=== PATIENT | female | born 1985 | race Caucasian/White ===

== ENCOUNTER 2018-05-26 21:06 | Emergency (ER) | payer BC ==
[2018-05-26 21:33] VITALS: BP 110/65; PULSE 69; O2SAT 98
--- NOTE | 2018-05-26 21:44 | ERPHSYRPT ---
- History of Present Illness Time Seen by Provider: 05/26/18 21:35 Historian: patient Exam Limitations: no limitations Patient Subjective Stated Complaint: Pt arrives to ER with hematuria first noticed 1630 today, intermittent lower back pain for past 10 months and lower abdominal pain for 3 months when she "holds her urine". Triage Nursing Assessment: no gross hematuria noted at this time. Physician History: 32-year-old white female arrives with complaint of pain in her back and bilateral of for 10 months intermittent also complains of lower abdominal pain with urination again for 3 months. She states today she noticed some blood in her urine. Past medical history asthma. Past surgical history includes C-sections tonsils hysterectomy. Social history patient denies alcohol or illicit drugs positive tobacco. Timing/Duration: other (hematuria today, lower abdominal pain with urination for 3 months, intermittent back pain for 10 months) Quality: sharpness Abdominal Pain Onset Location: flank (bilateral flank), other (bilateral lower abdomen) Severity of Pain-Max: moderate Severity of Pain-Current: moderate Associated Symptoms: No chest pain, No diaphoresis, No diarrhea, No fever/chills , No fatigue, No headache, No heartburn, No loss of appetite, No nausea, No neck pain, No rash, No shortness of breath, No syncope, No vomiting, No weakness Previous symptoms: no prior history Allergies/Adverse Reactions: ceftriaxone [From Rocephin] Allergy (Intermediate, Verified 05/26/18 21:33) Anaphylactic Reaction bupropion HCl [From Wellbutrin] Allergy (Mild, Unverified 02/10/12 18:35) diphenhydramine HCl [From Benadryl] Allergy (Mild, Unverified 02/10/12 18:35) tramadol Allergy (Mild, Unverified 02/10/12 18:35) Home Medications: Clindamycin HCl 300 mg PO QID 05/26/18 [History] Folic Acid 1 mg PO 05/26/18 [History] - Review of Systems Constitutional: No Fever, No Chills Eyes: No Symptoms Ears, Nose, & Throat: No Symptoms Respiratory: No Cough, No Dyspnea Cardiac: No Chest Pain, No Edema, No Syncope Abdominal/Gastrointestinal: Abdominal Pain (bilateral lower abdominal pain with urination), No Nausea, No Vomiting, No Diarrhea, No Constipation, No Hematemesis , No Hematochezia, No Melena, No Dysphagia, No Appetite Changes Genitourinary Symptoms: Dysuria, Flank Pain (bilateral flank pain off an on for 10 months) Musculoskeletal: No Back Pain, No Neck Pain Skin: No Rash Neurological: No Dizziness, No Focal Weakness, No Sensory Changes Psychological: No Symptoms Endocrine: No Symptoms All Other Systems: Reviewed and Negative - Past Medical History Pertinent Past Medical History: Yes Respiratory History: Asthma, Emphysema - Past Surgical History Past Surgical History: Yes Female Surgical History: Hysterectomy, Section Other Surgical History: TONSILECTOMY, ear tubes - Social History Smoking Status: Current every day smoker How long have you smoked: 6 YEARS Exposure to second hand smoke: No Drug Use: none Patient Lives Alone: No - Female History Hx Now: No - Nursing Vital Signs Nursing Vital Signs: Initial Vital Signs Temperature 98 F 05/26/18 21:23 Pulse Rate 69 05/26/18 21:23 Respiratory Rate 18 05/26/18 21:23 Blood Pressure 110/65 05/26/18 21:23 O2 Sat by Pulse Oximetry 98 05/26/18 21:23 Pain Scale Pain Intensity 6 - Physical Exam General Appearance: mild distress Eye Exam: PERRL/EOMI, eyes nml inspection Ears, Nose, Throat Exam: normal ENT inspection, pharynx normal, moist mucous membranes Neck Exam: normal inspection, non-tender, supple, full range of motion Respiratory Exam: normal breath sounds, lungs clear, No respiratory distress Cardiovascular Exam: regular rate/rhythm, normal heart sounds Gastrointestinal/Abdomen Exam: soft, No tenderness, No mass Back Exam: normal inspection, normal range of motion, No CVA tenderness, No vertebral tenderness Extremity Exam: normal inspection, normal range of motion, pelvis stable Neurologic Exam: alert, oriented x 3, cooperative, beauty director II-XII nml as tested, normal mood/affect, nml cerebellar function, sensation nml, No motor deficits Skin Exam: normal color, warm, dry SpO2 Interpretation: normal (98%) SpO2: 98 Oxygen Delivery: Room Air Ordered Tests: Active Orders 24 hr Category Date Time Status BMP Stat Lab 05/26/18 21:50 Completed CBC W DIFF Stat Lab 05/26/18 21:50 Completed CULTURE,URINE Stat Lab 05/26/18 21:50 Received UA W/RFX UR CULTURE Stat Lab 05/26/18 21:50 Completed Urine Triage Profile Stat Lab 05/26/18 21:48 Completed Medication Summary Discontinued Medications Generic Name Dose Route Start Last Admin Trade Name Gabi PRN Reason Stop Dose Admin Ketorolac Tromethamine 30 mg 05/26/18 22:11 05/26/18 22:23 Toradol 30 Mg Injection IV 05/26/18 22:12 30 mg STAT ONE Administration Ketorolac Tromethamine Confirm 05/26/18 22:16 Toradol 30 Mg Injection Administered 05/26/18 22:17 Dose 30 mg .ROUTE .STK-MED ONE Trimethoprim/Sulfamethoxazole 1 tab 05/26/18 22:11 05/26/18 22:22 Bactrim Ds Tablet PO 05/26/18 22:12 1 tab STAT ONE Administration Trimethoprim/Sulfamethoxazole Confirm 05/26/18 22:16 Bactrim Ds Tablet Administered 05/26/18 22:17 Dose 1 tab PO .STK-MED ONE Lab/Rad Data: Laboratory Result Diagrams 05/26/18 21:50 05/26/18 21:50 Laboratory Results 05/26/18 05/26/18 05/26/18 Range/Units 21:50 21:50 21:50 WBC 15.1 H (4.0-10.5) K/mm3 RBC 4.44 (4.1-5.4) M/mm3 Hgb 14.8 (12.0-16.0) gm/dl Hct 43.5 (35-47) % MCV 98.0 (78-100) fl MCH 33.3 H (26-32) pg MCHC 34.0 (32-36) g/dl RDW 12.9 (11.5-14.0) % Plt Count 231 (150-450) K/mm3 MPV 9.7 H (6-9.5) fl Gran % 76.4 H (36.0-66.0) % Eos # (Auto) 0.10 (0-0.5) Absolute Lymphs (auto) 2.85 (1.0-4.6) Absolute Monos (auto) 0.61 (0.0-1.3) Lymphocytes % 18.8 L (24.0-44.0) % Monocytes % 4.0 (0.0-12.0) % Eosinophils % 0.7 (0.00-5.0) % Basophils % 0.1 (0.0-0.4) % Absolute Granulocytes 11.56 H (1.4-6.9) Basophils # 0.02 (0-0.4) Sodium 141 (137-145) mmol/L Potassium 3.8 (3.5-5.1) mmol/L Chloride 106 (98-107) mmol/L Carbon Dioxide 27 (22-30) mmol/L Anion Gap 12.4 (5-15) MEQ/L BUN 10 (7-17) mg/dL Creatinine 0.70 (0.52-1.04) mg/dL Estimated GFR > 60.0 ML/MIN Glucose 97 (74-106) mg/dL Calcium 9.7 (8.4-10.2) mg/dL Urine Color YELLOW (YELLOW) Urine Appearance SLIGHTLY CLOUDY (CLEAR) Urine pH 6.0 (5-6) Ur Specific [place] 1.003 (1.005-1.025) Urine Protein NEGATIVE (Negative) Urine Ketones NEGATIVE (NEGATIVE) Urine Blood LARGE (0-5) [place]/ul Urine Nitrite NEGATIVE (NEGATIVE) Urine Bilirubin NEGATIVE (NEGATIVE) Urine Urobilinogen NEGATIVE (0-1) mg/dL Ur Leukocyte Esterase LARGE (NEGATIVE) Urine WBC (Auto) >100 (0-5) /HPF Urine RBC (Auto) 11-15 (0-2) /HPF U Epithel Cells (Auto) RARE (FEW) /HPF Urine Bacteria (Auto) FEW (NEGATIVE) /HPF Urine Mucus (Auto) SLIGHT (NEGATIVE) /HPF Urine Culture Reflexed YES (NO) Urine Glucose NEGATIVE (NEGATIVE) mg/dL Urine Opiates Level (NEGATIVE) Ur Methadone (NEGATIVE) Urine Barbiturates (NEGATIVE) Ur Phencyclidine (PCP) (NEGATIVE) Urine Amphetamine (NEGATIVE) U Benzodiazepine Level (NEGATIVE) Urine Cocaine (NEGATIVE) Urine Marijuana (THC) (NEGATIVE) 05/26/18 Range/Units 21:48 WBC (4.0-10.5) K/mm3 RBC (4.1-5.4) M/mm3 Hgb (12.0-16.0) gm/dl Hct (35-47) % MCV (78-100) fl MCH (26-32) pg MCHC (32-36) g/dl RDW (11.5-14.0) % Plt Count (150-450) K/mm3 MPV (6-9.5) fl Gran % (36.0-66.0) % Eos # (Auto) (0-0.5) Absolute Lymphs (auto) (1.0-4.6) Absolute Monos (auto) (0.0-1.3) Lymphocytes % (24.0-44.0) % Monocytes % (0.0-12.0) % Eosinophils % (0.00-5.0) % Basophils % (0.0-0.4) % Absolute Granulocytes (1.4-6.9) Basophils # (0-0.4) Sodium (137-145) mmol/L Potassium (3.5-5.1) mmol/L Chloride (98-107) mmol/L Carbon Dioxide (22-30) mmol/L Anion Gap (5-15) MEQ/L BUN (7-17) mg/dL Creatinine (0.52-1.04) mg/dL Estimated GFR ML/MIN Glucose (74-106) mg/dL Calcium (8.4-10.2) mg/dL Urine Color (YELLOW) Urine Appearance (CLEAR) Urine pH (5-6) Ur Specific [place] (1.005-1.025) Urine Protein (Negative) Urine Ketones (NEGATIVE) Urine Blood (0-5) Bass[place]/ul Urine Nitrite (NEGATIVE) Urine Bilirubin (NEGATIVE) Urine Urobilinogen (0-1) mg/dL Ur Leukocyte Esterase (NEGATIVE) Urine WBC (Auto) (0-5) /HPF Urine RBC (Auto) (0-2) /HPF U Epithel Cells (Auto) (FEW) /HPF Urine Bacteria (Auto) (NEGATIVE) /HPF Urine Mucus (Auto) (NEGATIVE) /HPF Urine Culture Reflexed (NO) Urine Glucose (NEGATIVE) mg/dL Urine Opiates Level NEGATIVE (NEGATIVE) Ur Methadone NEGATIVE (NEGATIVE) Urine Barbiturates NEGATIVE (NEGATIVE) Ur Phencyclidine (PCP) NEGATIVE (NEGATIVE) Urine Amphetamine NEGATIVE (NEGATIVE) U Benzodiazepine Level NEGATIVE (NEGATIVE) Urine Cocaine NEGATIVE (NEGATIVE) Urine Marijuana (THC) NEGATIVE (NEGATIVE) - Progress Progress: improved Progress Note: 05/26/18 22:22 32-year-old white female arrives with complaint of 10 months of intermittent back pain and 3 months of dysuria. Patient with mild lower abdominal tenderness CBC elevated at 15 white count Patient's greater than 100 white cells per high-power field in her urine I have given the patient Bactrim DS 1 tablet orally Toradol 30 mg IV. Cultures have been obtained of the urine.chemistry is normal 05/26/18 22:24 05/26/18 22:29 Patient feeling better with Toradol 30 mg IV. She does not want any pain medications other than this she states she will take [id number] Advil or Tylenol. She is on clindamycin for a facial infection which she started last week. Will go ahead and place her on Bactrim DS one orally twice a day for 10 days. Patient has been advised to drink plenty of fluids. She has been advised that she needs to follow-up with her family doctor. - Departure Time of Disposition: 22:30 Departure Disposition: Home Clinical Impression: Dysuria, Suprapubic abdominal pain Hematuria Qualifiers: Hematuria type: unspecified type Qualified Code(s): R31.9 - Hematuria, unspecified UTI (urinary tract infection) Qualifiers: Urinary tract infection type: site unspecified Hematuria presence: with hematuria Qualified Code(s): N39.0 - Urinary tract infection, site not specified Condition: Fair Critical Care Time: No Referrals: DOCTOR,NO FAMILY [Primary Care Provider] - Additional Instructions: Return home. Plenty of fluids. Bactrim as prescribed. Tylenol every 4 hours or Advil every 6 hours as needed for pain. Follow-up with your family doctor you will need follow-up. Return for acute distress or for severe symptoms. Prescriptions: Smz/Tmp Ds Tablet [Bactrim Ds Tablet] 1 tab PO BID #20 tablet
[2018-05-26 21:53] LABS: BASOPHIL % 0.1 % (0.0-0.4); Basophil (Absolute #) 0.02 (0-0.4); Eosinophil % 0.7 % (0.00-5.0); Granulocyte Absolute (ANC) 11.56 (1.4-6.9); Granulocytes % 76.4 % (36.0-66.0); Hematocrit 43.5 % (35-47); Hemoglobin 14.8 gm/dl (12.0-16.0); Lymphocyte (Absolute #) 2.85 (1.0-4.6); Lymphocytes % 18.8 % (24.0-44.0); Mean Corpuscular Hemoglobin 33.3 pg (26-32); Mean Platelet Volume 9.7 fl (6-9.5); Monocyte (Absolute #) 0.61 (0.0-1.3); Platelet Count 231 K/mm3 (150-450); Red Blood Count 4.44 M/mm3 (4.1-5.4); Red Cell Distribution Width 12.9 % (11.5-14.0); White Blood Count 15.1 K/mm3 (4.0-10.5)
[2018-05-26 22:04] LABS: Appearance SLIGHTLY CLOUDY (CLEAR); Bilirubin NEGATIVE (NEGATIVE); Blood LARGE Ery/ul (0-5); Glucose NEGATIVE (NEGATIVE); Ketones NEGATIVE (NEGATIVE); Leukocyte Esterase LARGE (NEGATIVE); Nitrite NEGATIVE (NEGATIVE); Protein,Urine Dip NEGATIVE (Negative); Specific Gravity 1.003 (1.005-1.025); Urobilinogen NEGATIVE mg/dL (0-1)
[2018-05-26 22:10] LABS: ANION GAP 12.4 MEQ/L (5-15); BLOOD UREA NITROGEN 10 mg/dL (7-17); CHLORIDE 106 mmol/L (98-107); Calcium 9.7 mg/dL (8.4-10.2); Carbon Dioxide 27 mmol/L (22-30); Glucose 97 mg/dL (74-106); Potassium 3.8 mmol/L (3.5-5.1); SODIUM 141 mmol/L (137-145)
[2018-05-26 22:11] LABS: Amphetamine,Urine NEGATIVE (NEGATIVE); Barbiturate,Urine NEGATIVE (NEGATIVE); Benzodiazepine,Urine NEGATIVE (NEGATIVE); Cocaine,Urine NEGATIVE (NEGATIVE); Methadone,Urine NEGATIVE (NEGATIVE); Opiate,Urine NEGATIVE (NEGATIVE); PCP,Urine NEGATIVE (NEGATIVE); THC,Urine NEGATIVE (NEGATIVE)
[2018-05-26] MEDS ORDERED: TORAdol 30 mg Injection IV ONE (22:11)
[2018-05-26] MEDS ORDERED: BACTRIM DS TABLET PO ONE ×2 (22:11→22:16)
[2018-05-26] MEDS ORDERED: TORAdol 30 mg Injection ONE (22:16)
== END 2018-05-26 22:39 | disposition home or self-care (01) ==
LOC: ED 21:06
DX: R30.0 Dysuria (principal); R10.30 Lower abdominal pain, unspecified; N39.0 Urinary tract infection, site not specified; Z72.0 Tobacco use; J45.909 Unspecified asthma, uncomplicated
CPT/HCPCS: 36415; 80048; 80307; 81001; 85025; 87077; 87086; 87186; 96374; 99284; J1885; A9270-GY

== ENCOUNTER 2018-12-25 13:34 | Emergency (ER) | payer BC, MEDICAID ==
--- NOTE | 2018-12-25 13:50 | ERPHSYRPT ---
- History of Present Illness Time Seen by Provider: 12/25/18 13:50 Source: patient Exam Limitations: no limitations Physician History: 33 y/o white female s/p hysterectomy in the past noticed a few days ago painful urination and mild gross hematuria. pt drank cranberry juice. sx improved. this am painful urination worsened and again mild gross hematuria. denies abd pain, denies n/v/d. pt states she has taken cipro and bactrim in past for uti without issues. Timing/Duration: day(s) (2 to 3 days) Activites at Onset: none Quality: burning Pain Radiation: none Severity of Pain-Max: mild Severity of Pain-Current: mild Sexual intercourse history: non-contributory Modifying Factors: Improves With: other (cranberry juice helped temporarily.) Allergies/Adverse Reactions: ceftriaxone [From Rocephin] Allergy (Intermediate, Verified 12/25/18 13:47) Anaphylactic Reaction bupropion HCl [From Wellbutrin] Allergy (Mild, Verified 12/25/18 13:47) diphenhydramine HCl [From Benadryl] Allergy (Mild, Verified 12/25/18 13:47) tramadol Allergy (Mild, Verified 12/25/18 13:47) Home Medications: Folic Acid 1 mg PO DAILY 05/26/18 [History] - Review of Systems Constitutional: No Symptoms Eyes: No Symptoms Ears, Nose, & Throat: No Symptoms Respiratory: No Symptoms Cardiac: No Symptoms Abdominal/Gastrointestinal: No Symptoms Genitourinary Symptoms: Dysuria, Hesitancy Musculoskeletal: No Symptoms Skin: No Symptoms Neurological: No Symptoms Psychological: No Symptoms Endocrine: No Symptoms Hematologic/Lymphatic: No Symptoms Immunological/Allergic: No Symptoms All Other Systems: Reviewed and Negative - Past Medical History Pertinent Past Medical History: Yes Neurological History: No Pertinent History ENT History: No Pertinent History Cardiac History: No Pertinent History Respiratory History: Asthma, Emphysema Endocrine Medical History: No Pertinent History Musculoskeletal History: No Pertinent History GI Medical History: No Pertinent History History: No Pertinent History Psycho-Social History: No Pertinent History Female Reproductive Disorders: No Pertinent History - Past Surgical History Past Surgical History: Yes Neuro Surgical History: No Pertinent History Cardiac: No Pertinent History Respiratory: No Pertinent History Gastrointestinal: No Pertinent History Genitourinary: No Pertinent History Musculoskeletal: No Pertinent History Female Surgical History: Hysterectomy, Section Other Surgical History: TONSILECTOMY, ear tubes - Social History Smoking Status: Current every day smoker How long have you smoked: 6 YEARS Exposure to second hand smoke: No Drug Use: none Patient Lives Alone: No - Nursing Vital Signs Nursing Vital Signs: Initial Vital Signs Temperature 97.5 F 12/25/18 13:39 Pulse Rate 79 12/25/18 13:39 Respiratory Rate 16 12/25/18 13:39 Blood Pressure 116/70 12/25/18 13:39 O2 Sat by Pulse Oximetry 100 12/25/18 13:39 Pain Scale Pain Intensity 2 - Physical Exam General Appearance: no apparent distress, alert, anxiety Eye Exam: PERRL/EOMI Ears, Nose, Throat Exam: normal ENT inspection, moist mucous membranes Neck Exam: normal inspection, non-tender, supple, full range of motion Respiratory Exam: normal breath sounds, lungs clear, airway intact, No chest tenderness, No respiratory distress Cardiovascular Exam: regular rate/rhythm, normal heart sounds, normal peripheral pulses Gastrointestinal/Abdomen Exam: soft, normal bowel sounds, No tenderness, No guarding, No rebound Pelvic Exam: not done Rectal Exam: not done Back Exam: normal inspection, normal range of motion, No CVA tenderness, No vertebral tenderness Extremity Exam: normal inspection, normal range of motion, No pelvis stable Neurologic Exam: alert, oriented x 3, cooperative, stave mill hand II-XII nml as tested Skin Exam: normal color, warm, dry Lymphatic Exam: No adenopathy SpO2 Interpretation: normal O2 Delivery: Room Air - Course Nursing assessment & vital signs reviewed: Yes Ordered Tests: Active Orders 24 hr Category Date Time Status CULTURE,URINE Stat Lab 12/25/18 14:02 Received UA W/RFX UR CULTURE Stat Lab 12/25/18 14:02 Completed Lab/Rad Data: Laboratory Results 12/25/18 Range/Units 14:02 Urine Color RED (YELLOW) Urine Appearance CLOUDY (CLEAR) Urine pH 6.0 (5-6) Ur Specific [place] 1.013 (1.005-1.025) Urine Protein >=500 (Negative) Urine Ketones NEGATIVE (NEGATIVE) Urine Blood LARGE (0-5) [place]/ul Urine Nitrite NEGATIVE (NEGATIVE) Urine Bilirubin NEGATIVE (NEGATIVE) Urine Urobilinogen NEGATIVE (0-1) mg/dL Ur Leukocyte Esterase MODERATE (NEGATIVE) Urine WBC (Auto) >100 (0-5) /HPF Urine RBC (Auto) >101 (0-2) /HPF U Epithel Cells (Auto) RARE (FEW) /HPF Urine Bacteria (Auto) RARE (NEGATIVE) /HPF Urine Culture Reflexed YES (NO) Urine Glucose 50 (NEGATIVE) mg/dL - Progress Progress: re-examined, unchanged Air Movement: good Counseled pt/family regarding: lab results, diagnosis, need for follow-up - Departure Departure Disposition: Home Clinical Impression: UTI (urinary tract infection) Condition: Stable Critical Care Time: No Referrals: DOCTOR,NO FAMILY [Primary Care Provider] - Additional Instructions: drink plenty of fluids. follow up with primary doctor or urologist for further management. use tylenol and ibuprofen for pain Prescriptions: Ciprofloxacin [Cipro 500 MG] 500 mg PO BID #20 tablet Phenazopyridine HCl 200 mg [Pyridium 200 mg] 200 mg PO TID #6 tablet
[2018-12-25 14:00] VITALS: PULSE 79
[2018-12-25 14:22] LABS: Appearance CLOUDY (CLEAR); Bacteria RARE /HPF (NEGATIVE); Bilirubin NEGATIVE (NEGATIVE); Blood LARGE Ery/ul (0-5); Epithelial Cells RARE /HPF (FEW); Glucose 50 mg/dL (NEGATIVE); Ketones NEGATIVE (NEGATIVE); Leukocyte Esterase MODERATE (NEGATIVE); Nitrite NEGATIVE (NEGATIVE); Protein,Urine Dip >=500 (Negative); Specific Gravity 1.013 (1.005-1.025); Urobilinogen NEGATIVE mg/dL (0-1); WBC >100 /HPF (0-5)
[2018-12-25 14:23] LABS: RBC >101 /HPF (0-2)
[2018-12-25 14:56] VITALS: BP 103/61; O2SAT 98
== END 2018-12-25 15:03 | disposition home or self-care (01) ==
LOC: ED 13:34
DX: N39.0 Urinary tract infection, site not specified (principal)
CPT/HCPCS: 81001; 87077; 87086; 87186; 99283

== ENCOUNTER 2019-03-19 13:50 | Emergency (ER) | payer MEDICAID ==
[2019-03-19] MEDS ORDERED: TORAdol 30 mg Injection IV ONE (14:05)
[2019-03-19] MEDS ORDERED: Sodium Chloride 0.9% 1000 ML 1,000 ML IV STA ×2 (14:05→15:43)
[2019-03-19] MEDS ORDERED: Zofran 4 MG/2 ML VIAL IV ONE (14:05)
--- NOTE | 2019-03-19 14:09 | ERPHSYRPT ---
- History of Present Illness Time Seen by Provider: 03/19/19 14:07 Historian: patient Exam Limitations: no limitations Patient Subjective Stated Complaint: states shes been having nausea and vomitting for past few days concerned it might be moring sickness Triage Nursing Assessment: pt alert and orietnedx3, able to ambulate by self, patient gait iss teady, skin warm ry and itnact, pulses equal bialteral radius, lung soudns clear, abdomianl soudns present x4 , no tednerness on palpation. Physician History: mild to mod diffuse abdominal cramps off and on for one week, no fever, hx hysterectomy, no injury Allergies/Adverse Reactions: ceftriaxone [From Rocephin] Allergy (Intermediate, Verified 12/25/18 13:47) Anaphylactic Reaction bupropion HCl [From Wellbutrin] Allergy (Mild, Verified 12/25/18 13:47) diphenhydramine HCl [From Benadryl] Allergy (Mild, Verified 12/25/18 13:47) tramadol Allergy (Mild, Verified 12/25/18 13:47) Home Medications: Folic Acid 1 mg PO DAILY 05/26/18 [History] Hx Tetanus, Diphtheria Vaccination/Date Given: Yes Hx Influenza Vaccination/Date Given: No Hx Pneumococcal Vaccination/Date Given: No Immunizations Up to Date: Yes - Review of Systems Constitutional: No Fever Eyes: No Vision Changes Ears, Nose, & Throat: No Throat Swelling Respiratory: No Symptoms Cardiac: No Symptoms Abdominal/Gastrointestinal: Abdominal Pain, Vomiting Musculoskeletal: No Symptoms Skin: No Symptoms Neurological: No Dizziness - Past Medical History Pertinent Past Medical History: Yes Neurological History: No Pertinent History ENT History: No Pertinent History Cardiac History: No Pertinent History Respiratory History: Asthma, Emphysema Endocrine Medical History: No Pertinent History Musculoskeletal History: No Pertinent History GI Medical History: No Pertinent History History: No Pertinent History Psycho-Social History: No Pertinent History Female Reproductive Disorders: No Pertinent History - Past Surgical History Past Surgical History: Yes Neuro Surgical History: No Pertinent History Cardiac: No Pertinent History Respiratory: No Pertinent History Gastrointestinal: No Pertinent History Genitourinary: No Pertinent History Musculoskeletal: No Pertinent History Female Surgical History: Hysterectomy, Section Other Surgical History: TONSILECTOMY, ear tubes - Social History Smoking Status: Current every day smoker How long have you smoked: 6 YEARS Exposure to second hand smoke: No Drug Use: none Patient Lives Alone: No - Female History Hx Now: (unsure) - Nursing Vital Signs Nursing Vital Signs: Initial Vital Signs Temperature 98.2 F 03/19/19 13:51 Pulse Rate 67 03/19/19 13:51 Respiratory Rate 20 03/19/19 13:51 Blood Pressure 111/74 03/19/19 13:51 O2 Sat by Pulse Oximetry 98 03/19/19 13:51 Pain Scale Pain Intensity 5 - Physical Exam General Appearance: no apparent distress Eye Exam: eyes nml inspection Ears, Nose, Throat Exam: moist mucous membranes Neck Exam: normal inspection Respiratory Exam: normal breath sounds Cardiovascular Exam: regular rate/rhythm Gastrointestinal/Abdomen Exam: soft, tenderness, No rebound Back Exam: No vertebral tenderness Extremity Exam: normal inspection Neurologic Exam: alert, oriented x 3, cooperative Skin Exam: normal color, warm, dry - Course Nursing assessment & vital signs reviewed: Yes - CT Exams Abdomen/Pelvis CT Interpretation: Discussed w/radiologist, No appendicitis, Other (no obstruction, +ovarian cysts) - Radiology Ultrasound Exam Other Ultrasound: discussed w/radiologist, Other (no torsion) Ordered Tests: Active Orders 24 hr Category Date Time Status IV Insertion STAT Care 03/19/19 14:05 Active ABDOMEN AND PELVIS W/0 CONTRAS [CT] Stat Exams 03/19/19 15:08 Completed PELVIC [US] Stat Exams 03/19/19 15:35 Taken CBC W DIFF Stat Lab 03/19/19 14:20 Completed CMP Stat Lab 03/19/19 14:20 Completed HCG QUALITATIVE,SERUM Stat Lab 03/19/19 14:48 Completed LIPASE Stat Lab 03/19/19 14:20 Completed Lactic Acid Stat Lab 03/19/19 14:30 Completed UA W/RFX UR CULTURE Stat Lab 03/19/19 14:20 Completed Medication Summary Discontinued Medications Generic Name Dose Route Start Last Admin Trade Name Freq PRN Reason Stop Dose Admin Sodium Chloride 1,000 mls @ 999 mls/hr 03/19/19 14:05 03/19/19 15:24 Sodium Chloride 0.9% 1000 Ml IV 03/19/19 15:05 Infused .Q1H1M STA Infusion Sodium Chloride Confirm 03/19/19 14:17 Sodium Chloride 0.9% 1000 Ml Administered 03/19/19 14:18 Dose 1,000 mls @ ud .ROUTE .STK-MED ONE Sodium Chloride 1,000 mls @ 999 mls/hr 03/19/19 15:43 03/19/19 15:48 Sodium Chloride 0.9% 1000 Ml IV 03/19/19 16:43 999 mls/hr .Q1H1M STA Administration Sodium Chloride Confirm 03/19/19 15:45 Sodium Chloride 0.9% 1000 Ml Administered 03/19/19 15:46 Dose 1,000 mls @ ud .ROUTE .STK-MED ONE Ketorolac Tromethamine 30 mg 03/19/19 14:05 03/19/19 14:23 Toradol 30 Mg Injection IV 03/19/19 14:06 30 mg STAT ONE Administration Ketorolac Tromethamine Confirm 03/19/19 14:16 Toradol 30 Mg Injection Administered 03/19/19 14:17 Dose 30 mg .ROUTE .STK-MED ONE Morphine Sulfate 4 mg 03/19/19 15:34 03/19/19 15:47 Morphine Sulfate 4 Mg Inj IV 03/19/19 15:35 4 mg STAT ONE Administration Morphine Sulfate Confirm 03/19/19 15:44 Morphine Sulfate 4 Mg Inj Administered 03/19/19 15:45 Dose 4 mg .ROUTE .STK-MED ONE Ondansetron HCl 4 mg 03/19/19 14:05 03/19/19 14:23 Zofran 4 Mg/2 Ml Vial IV 03/19/19 14:06 4 mg STAT ONE Administration Ondansetron HCl Confirm 03/19/19 14:16 Zofran 4 Mg/2 Ml Vial Administered 03/19/19 14:17 Dose 4 mg .ROUTE .STK-MED ONE Lab/Rad Data: Laboratory Result Diagrams 03/19/19 14:20 03/19/19 14:20 Laboratory Results 03/19/19 03/19/19 03/19/19 Range/Units 14:48 14:30 14:20 WBC (4.0-10.5) K/mm3 RBC (4.1-5.4) M/mm3 Hgb (12.0-16.0) gm/dl Hct (35-47) % MCV (78-100) fl MCH (26-32) pg MCHC (32-36) g/dl RDW (11.5-14.0) % Plt Count (150-450) K/mm3 MPV (6-9.5) fl Gran % (36.0-66.0) % Eos # (Auto) (0-0.5) Absolute Lymphs (auto) (1.0-4.6) Absolute Monos (auto) (0.0-1.3) Lymphocytes % (24.0-44.0) % Monocytes % (0.0-12.0) % Eosinophils % (0.00-5.0) % Basophils % (0.0-0.4) % Absolute Granulocytes (1.4-6.9) Basophils # (0-0.4) Sodium (137-145) mmol/L Potassium (3.5-5.1) mmol/L Chloride (98-107) mmol/L Carbon Dioxide (22-30) mmol/L Anion Gap (5-15) MEQ/L BUN (7-17) mg/dL Creatinine (0.52-1.04) mg/dL Estimated GFR ML/MIN Glucose (74-106) mg/dL Lactic Acid 1.8 (0.4-2.0) Calcium (8.4-10.2) mg/dL Total Bilirubin (0.2-1.3) mg/dL AST (14-36) U/L ALT (0-35) U/L Alkaline Phosphatase (38-126) U/L Serum Total Protein (6.3-8.2) g/dL Albumin (3.5-5.0) g/dL Lipase (23-300) U/L Serum , Qual NEGATIVE (Negative) Urine Color RADHA (YELLOW) Urine Appearance SLIGHTLY CLOUDY (CLEAR) Urine pH 6.0 (5-6) Ur Specific [place] 1.024 (1.005-1.025) Urine Protein NEGATIVE (Negative) Urine Ketones NEGATIVE (NEGATIVE) Urine Blood MODERATE (0-5) Bassam/ul Urine Nitrite NEGATIVE (NEGATIVE) Urine Bilirubin NEGATIVE (NEGATIVE) Urine Urobilinogen NEGATIVE (0-1) mg/dL Ur Leukocyte Esterase NEGATIVE (NEGATIVE) Urine WBC (Auto) 0-2 (0-5) /HPF Urine RBC (Auto) 3-5 (0-2) /HPF U Epithel Cells (Auto) RARE (FEW) /HPF Urine Bacteria (Auto) NONE (NEGATIVE) /HPF Urine Mucus (Auto) SLIGHT (NEGATIVE) /HPF Urine Culture Reflexed NO (NO) Urine Glucose NEGATIVE (NEGATIVE) mg/dL 03/19/19 03/19/19 Range/Units 14:20 14:20 WBC 9.3 (4.0-10.5) K/mm3 RBC 4.51 (4.1-5.4) M/mm3 Hgb 15.2 (12.0-16.0) gm/dl Hct 45.2 (35-47) % MCV 100.2 H (78-100) fl MCH 33.7 H (26-32) pg MCHC 33.6 (32-36) g/dl RDW 13.0 (11.5-14.0) % Plt Count 243 (150-450) K/mm3 MPV 9.3 (6-9.5) fl Gran % 58.4 (36.0-66.0) % Eos # (Auto) 0.11 (0-0.5) Absolute Lymphs (auto) 3.10 (1.0-4.6) Absolute Monos (auto) 0.63 (0.0-1.3) Lymphocytes % 33.4 (24.0-44.0) % Monocytes % 6.8 (0.0-12.0) % Eosinophils % 1.2 (0.00-5.0) % Basophils % 0.2 (0.0-0.4) % Absolute Granulocytes 5.43 (1.4-6.9) Basophils # 0.02 (0-0.4) Sodium 140 (137-145) mmol/L Potassium 3.7 (3.5-5.1) mmol/L Chloride 108 H (98-107) mmol/L Carbon Dioxide 27 (22-30) mmol/L Anion Gap 9.0 (5-15) MEQ/L BUN 9 (7-17) mg/dL Creatinine 0.72 (0.52-1.04) mg/dL Estimated GFR > 60.0 ML/MIN Glucose 95 (74-106) mg/dL Lactic Acid (0.4-2.0) Calcium 9.8 (8.4-10.2) mg/dL Total Bilirubin 0.40 (0.2-1.3) mg/dL AST 24 (14-36) U/L ALT 25 (0-35) U/L Alkaline Phosphatase 44 (38-126) U/L Serum Total Protein 7.4 (6.3-8.2) g/dL Albumin 4.3 (3.5-5.0) g/dL Lipase 67 (23-300) U/L Serum , Qual (Negative) Urine Color (YELLOW) Urine Appearance (CLEAR) Urine pH (5-6) Ur Specific [place] (1.005-1.025) Urine Protein (Negative) Urine Ketones (NEGATIVE) Urine Blood (0-5) Bassam/ul Urine Nitrite (NEGATIVE) Urine Bilirubin (NEGATIVE) Urine Urobilinogen (0-1) mg/dL Ur Leukocyte Esterase (NEGATIVE) Urine WBC (Auto) (0-5) /HPF Urine RBC (Auto) (0-2) /HPF U Epithel Cells (Auto) (FEW) /HPF Urine Bacteria (Auto) (NEGATIVE) /HPF Urine Mucus (Auto) (NEGATIVE) /HPF Urine Culture Reflexed (NO) Urine Glucose (NEGATIVE) mg/dL - Progress Progress: improved Progress Note: 03/19/19 17:11 see your doctor, norco and morphine warnings given, zofran, return if worse, differential includes ovarian cysts, cancer - Departure Departure Disposition: Home Clinical Impression: Suprapubic abdominal pain Condition: Stable Critical Care Time: No Referrals: DOCTOR,NO FAMILY [Primary Care Provider] - Instructions: Vomiting -- Adult Prescriptions: Ondansetron ODT 4 MG [Zofran Odt 4 mg] 1 tab PO Q6H PRN PRN #10 tab.rapdis PRN Reason: Nausea/Vomiting Hydrocodone/APAP 5/325 [[place] 5/325 mg] 1 each PO Q4-6HPRN PRN 2 Days #6 tablet MDD 4 PRN Reason: Moderate Pain
[2019-03-19] MEDS ORDERED: Zofran 4 MG/2 ML VIAL ONE (14:16)
[2019-03-19] MEDS ORDERED: TORAdol 30 mg Injection ONE (14:16)
[2019-03-19] MEDS ORDERED: Sodium Chloride 0.9% 1000 ML 1,000 ML ONE ×2 (14:17→15:45)
[2019-03-19 14:36] LABS: BASOPHIL % 0.2 % (0.0-0.4); Basophil (Absolute #) 0.02 (0-0.4); Eosinophil % 1.2 % (0.00-5.0); Eosinophil (Absolute #) 0.11 (0-0.5); Granulocyte Absolute (ANC) 5.43 (1.4-6.9); Granulocytes % 58.4 % (36.0-66.0); Hematocrit 45.2 % (35-47); Hemoglobin 15.2 gm/dl (12.0-16.0); Lymphocytes % 33.4 % (24.0-44.0); Mean Cell Volume 100.2 fl (78-100); Mean Corpuscular Hemoglobin 33.7 pg (26-32); Mean Corpuscular Hgb Concent. 33.6 g/dl (32-36); Mean Platelet Volume 9.3 fl (6-9.5); Monocyte (Absolute #) 0.63 (0.0-1.3); Monocytes % 6.8 % (0.0-12.0); Platelet Count 243 K/mm3 (150-450); Red Blood Count 4.51 M/mm3 (4.1-5.4); White Blood Count 9.3 K/mm3 (4.0-10.5)
[2019-03-19 14:37] LABS: Appearance SLIGHTLY CLOUDY (CLEAR); Bilirubin NEGATIVE (NEGATIVE); Blood MODERATE Ery/ul (0-5); Epithelial Cells RARE /HPF (FEW); Glucose NEGATIVE (NEGATIVE); Ketones NEGATIVE (NEGATIVE); Leukocyte Esterase NEGATIVE (NEGATIVE); Mucus SLIGHT /HPF (NEGATIVE); Nitrite NEGATIVE (NEGATIVE); Protein,Urine Dip NEGATIVE (Negative); Specific Gravity 1.024 (1.005-1.025); Urobilinogen NEGATIVE mg/dL (0-1); WBC 0-2 /HPF (0-5)
[2019-03-19 14:45] LABS: ALBUMIN 4.3 g/dL (3.5-5.0); ALKALINE PHOSPHATASE 44 U/L (38-126); BLOOD UREA NITROGEN 9 mg/dL (7-17); CHLORIDE 108 mmol/L (98-107); Calcium 9.8 mg/dL (8.4-10.2); Carbon Dioxide 27 mmol/L (22-30); Creatinine 1 0.72 mg/dL (0.52-1.04); Glucose 95 mg/dL (74-106); LIPASE 67 U/L (23-300); Potassium 3.7 mmol/L (3.5-5.1); SGOT/AST 24 U/L (14-36); SGPT/ALT 25 U/L (0-35); SODIUM 140 mmol/L (137-145); Total Protein 7.4 g/dL (6.3-8.2)
--- NOTE | 2019-03-19 15:30 | XRAY ---
Indication: Left abdomen pain and vomiting 1.5 weeks. Multiple contiguous axial images obtained through the abdomen and pelvis without contrast as ordered. Comparison: None Lung bases are clear. A few right infrahilar calcified nodes. Heart is not enlarged. Noncontrasted stomach and bowel loops appear nonobstructed. Normal appendix. Mild scattered colonic fecal debris in the descending and sigmoid. Uterus surgically absent. Prominent ovaries with largest ovary measuring 2.5 x 5.4 cm on the left. Tiny pelvic free fluid possibly from rupture/leaking cyst. No walled off fluid collection or free air. A few calcified splenic granulomas. Remaining liver, gallbladder, pancreas, spleen, adrenal glands, kidneys, ureters, bladder, and aorta appear unremarkable for noncontrast exam. Osseous structures intact. Small L4 segment bone island. Impression: 1. Partial hysterectomy with prominent ovaries and tiny pelvic free fluid. Pelvic sonogram may yield further information if clinically warranted. 2. Incidental small L4 bone island and evidence for old granulomatous disease. 3. Remaining CT abdomen/pelvis without contrast exam is negative. CT DI 23.52
[2019-03-19] MEDS ORDERED: MORPHINE SULFATE 4 MG INJ IV ONE (15:34)
[2019-03-19] MEDS ORDERED: MORPHINE SULFATE 4 MG INJ ONE (15:44)
--- NOTE | 2019-03-19 17:10 | XRAY ---
Indication: Left abdomen/pelvic pain. Partial hysterectomy. Two-dimensional transvaginal pelvic sonogram performed. Comparison: None Uterus surgically absent. Right ovary measures 3.0 x 2.0 x 4.4 cm and the left measures 4.1 x 3.1 x 3.9 cm. Normal follicular cysts and perfusion bilaterally. No suspicious adnexal mass or free fluid. Impression: Partial hysterectomy. Remaining transvaginal pelvic sonogram is negative.
[2019-03-19 17:22] VITALS: BP 120/70; PULSE 56; O2SAT 98
== END 2019-03-19 17:26 | disposition home or self-care (01) ==
LOC: ED 13:50
DX: R10.30 Lower abdominal pain, unspecified (principal)
CPT/HCPCS: 36000; 36415; 74176; 76856; 80053; 81001; 81025; 83605; 83690; 85025; 96360; 96361; 96374; 96375; 99284; J1885; J2270; J2405

== ENCOUNTER 2019-06-13 08:44 | Emergency (ER) | payer MEDICAID, OTHER ==
--- NOTE | 2019-06-13 08:47 | ERPHSYRPT ---
- History of Present Illness Time Seen by Provider: 06/13/19 08:46 Source: patient Exam Limitations: no limitations Physician History: 33 years old female with history of asthma, tobacco abuse present in the ER with chief complaint of increasing cough productive of clear to yellow sputum for the last 3-4 days associated with soreness in throat since yesterday. She also reports sinus congestion. Denies any shortness of breath, chest pain, palpitations, fever or chills.she does not have an inhaler or nebulizer at home. Timing/Duration: day(s) (4) Cough Quality/Degree: moderate, productive cough, sputum Possible Cause: unknown cause Modifying Factors: Improves With: coughing Associated Symptoms: chest pain/soreness, cough, nasal drainage, sinus infection , sore throat, No fever, No chills, No headache, No shortness of breath International travel in last 2 weeks: No Allergies/Adverse Reactions: ceftriaxone [From Rocephin] Allergy (Intermediate, Verified 06/13/19 08:59) Anaphylactic Reaction bupropion HCl [From Wellbutrin] Allergy (Mild, Verified 06/13/19 08:59) diphenhydramine HCl [From Benadryl] Allergy (Mild, Verified 06/13/19 08:59) tramadol Allergy (Mild, Verified 06/13/19 08:59) Hx Tetanus, Diphtheria Vaccination/Date Given: Yes Hx Influenza Vaccination/Date Given: No Hx Pneumococcal Vaccination/Date Given: No - Review of Systems Constitutional: Malaise Eyes: No Symptoms Ears, Nose, & Throat: Nose Congestion, Throat Pain, No Throat Swelling, No Hoarse, No Painful Swallowing Respiratory: Cough, Wheezing, No Dyspnea Cardiac: No Symptoms Abdominal/Gastrointestinal: No Symptoms Musculoskeletal: No Symptoms Skin: No Symptoms Neurological: No Symptoms Psychological: No Symptoms Endocrine: No Symptoms Hematologic/Lymphatic: No Symptoms Immunological/Allergic: No Symptoms - Past Medical History Pertinent Past Medical History: Yes Neurological History: No Pertinent History ENT History: No Pertinent History Cardiac History: No Pertinent History Respiratory History: Asthma, Emphysema Endocrine Medical History: No Pertinent History Musculoskeletal History: No Pertinent History GI Medical History: No Pertinent History History: No Pertinent History Psycho-Social History: No Pertinent History Female Reproductive Disorders: No Pertinent History - Past Surgical History Past Surgical History: Yes Neuro Surgical History: No Pertinent History Cardiac: No Pertinent History Respiratory: No Pertinent History Gastrointestinal: No Pertinent History Genitourinary: No Pertinent History Musculoskeletal: No Pertinent History Female Surgical History: Hysterectomy, Section Other Surgical History: TONSILECTOMY, ear tubes - Social History Smoking Status: Current every day smoker How long have you smoked: 6 YEARS Exposure to second hand smoke: No Drug Use: none Patient Lives Alone: No - Nursing Vital Signs Nursing Vital Signs: Initial Vital Signs Temperature 97.8 F 06/13/19 08:47 Pulse Rate 72 06/13/19 08:47 Respiratory Rate 22 06/13/19 08:47 Blood Pressure 117/78 06/13/19 08:47 O2 Sat by Pulse Oximetry 99 06/13/19 08:47 Pain Scale Pain Intensity 0 - Physical Exam General Appearance: no apparent distress Eye Exam: PERRL/EOMI, eyes nml inspection Ears, Nose, Throat Exam: moist mucous membranes, pharyngeal erythema, No tonsillar exudate Neck Exam: normal inspection, non-tender, supple, full range of motion Respiratory Exam: wheezing (left upper), No chest tenderness, No respiratory distress Cardiovascular Exam: regular rate/rhythm, normal heart sounds, normal peripheral pulses Gastrointestinal/Abdomen Exam: soft, No tenderness Extremity Exam: normal range of motion Neurologic Exam: alert, oriented x 3, cooperative Skin Exam: normal color SpO2 Interpretation: normal O2 Delivery: Room Air Ordered Tests: Active Orders 24 hr Category Date Time Status CHEST 2 VIEWS (PA AND LAT) Stat Exams 06/13/19 10:08 Taken Peak Expiratory Flow Rate ONCE RT 06/13/19 09:14 Active Respiratory Therapy Assessment DAILY RT 06/13/19 09:13 Active Medication Summary Discontinued Medications Generic Name Dose Route Start Last Admin Trade Name Gabi PRN Reason Stop Dose Admin Albuterol/Ipratropium 3 ml 06/13/19 09:03 06/13/19 09:10 Duoneb 0.5-3 Mg/3 Ml Neb IH 06/13/19 09:04 3 ml STAT ONE Administration Albuterol/Ipratropium Confirm 06/13/19 09:08 Duoneb 0.5-3 Mg/3 Ml Neb Administered 06/13/19 09:09 Dose 3 ml IH .STK-MED ONE Methylprednisolone Sodium Succinate 125 mg 06/13/19 09:03 06/13/19 09:20 Solu-Medrol 125 Mg IM 06/13/19 09:04 125 mg STAT ONE Administration Methylprednisolone Sodium Succinate Confirm 06/13/19 09:19 Solu-Medrol 125 Mg Administered 06/13/19 09:20 Dose 125 mg .ROUTE .STK-MED ONE Lab/Rad Data: Laboratory Results 06/13/19 Range/Units 09:23 Group A Strep Antibody NEGATIVE (NEGATIVE) - Progress Progress: improved, re-examined Air Movement: good Progress Note: She is given duo neb and steroid shot , on reevaluation her wheezing is improved. She has negative strep. Chest x-ray did not show any acute cardiopulmonary findings. I believe she has viral infection with asthma exacerbation.I would give her a short course of steroids. Also albuterol inhaler. I do not think she needs any other workup. She does not seems to be in any distress or toxic appearance. Stable for discharge with outpatient followup. Discussed signs and symptoms of worsening needing return to ER if she seems understanding. 06/13/19 10:15 Counseled pt/family regarding: lab results, diagnosis, need for follow-up, rad results, smoking cessation - Departure Departure Disposition: Home Clinical Impression: Acute viral bronchitis Condition: Stable Critical Care Time: No Referrals: DOCTOR,NO FAMILY [Primary Care Provider] - Follow Up with PCP/3 days Additional Instructions: use Tylenol/ibuprofen as needed. DO NOT SMOKE. USE INHALER NEEDED. CONTINUOUS STEROIDS.RETURN TO THE ER FOR worsening cough/fever chills or shortness of breath.FOLLOWUP WITH PRIMARY CARE PHYSICIAN FOR REEVALUATION EARLY NEXT WEEK. Prescriptions: Albuterol 8 gm Mdi Hfa [Ventolin Hfa MDI] 8 gm IH Q4H #1 hfa.aer.ad Prednisone 20 mg [Deltasone 20 mg] 60 mg PO DAILY 5 Days #15 tablet
[2019-06-13] MEDS ORDERED: DUONEB 0.5-3 MG/3 ml Neb IH ONE ×2 (09:03→09:08)
[2019-06-13] MEDS ORDERED: solu-MEDROL 125 MG IM ONE (09:03)
[2019-06-13] MEDS ORDERED: solu-MEDROL 125 MG ONE (09:19)
[2019-06-13 11:09] VITALS: BP 110/60; PULSE 68; O2SAT 97
--- NOTE | 2019-06-13 19:15 | XRAY ---
Indication: Cough. Comparison: None PA/lateral chest is clear. Heart and mediastinal structures within normal limits with incidental calcified nodes. Bony thorax intact. Impression: Nonacute chest. Evidence for old granulomatous disease.
== END 2019-06-13 11:08 | disposition home or self-care (01) ==
LOC: ED 08:44
DX: J20.8 Acute bronchitis due to other specified organisms (principal)
CPT/HCPCS: 71046; 87651; 94150; 94640; 96372; 99284; J2930; A9270-GY

== ENCOUNTER 2022-05-20 00:01 | Emergency (ER) | payer BC, OTHER ==
[2022-05-20 00:06] VITALS: BP 139/82; PULSE 62; O2SAT 100
[2022-05-20] MEDS ORDERED: PERCOCET TABLET 5/325MG PO STA (00:32)
--- NOTE | 2022-05-20 00:32 | ERPHSYRPT ---
- History of Present Illness Time Seen by Provider: 05/20/22 00:15 Source: patient, family Exam Limitations: no limitations Patient Subjective Stated Complaint: About a month ago, I was putting a box up on a shelf and it fell on my head. Since then, I've had arm pain. I had a xray done at [facility] in [place] and they said it's not broke. Tonight it started hurting really bad again after work. Triage Nursing Assessment: Pt ambulated into ER, sig other at bedside. Pt c/o rt shoulder/rt arm pain. Pt hurt it a month ago lifting a box over her head. Pt had an xray done at that time at [facility] in [place] and it was not broken. Pt worked all day today at [employer] using the arm, and the pain was bad after work. Pt is scheduled to work tomorrow, and states, "I know it will be bad at work again tomorrow". Physician History: This is an overweight 36-year-old white female who a month ago hit her head and at the same time there was shoulder pain on the right shoulder. She had an x- ray performed at the other facility and there is no evidence of any acute fracture or dislocation. Since that time, she has had pain intermittently and in the last week the pain is worsened. She was able to obtain an appoint with a primary care doctor on 05/21/2022. She did not fall or reinjure her right shoulder. She aggravated it today at work with frequent repetitive motion of the right shoulder and came into the emergency department because she was told by her primary care providers office if Tylenol and ibuprofen were not helping to go to urgent care the emergency department. Occurred: other (A month ago) Method of Injury: other (No new injury. No fall) Quality: constant, aching Severity of Pain-Max: mild (To moderate) Severity of Pain-Current: mild (To moderate) Extremities Pain Location: shoulder: right Modifying Factors: Improves With: movement Associated Symptoms: none Allergies/Adverse Reactions: ceftriaxone [From Rocephin] Allergy (Intermediate, Verified 05/20/22 00:15) Anaphylactic Reaction bupropion HCl [From Wellbutrin] Allergy (Mild, Verified 05/20/22 00:15) diphenhydramine HCl [From Benadryl] Allergy (Mild, Verified 05/20/22 00:15) tramadol Allergy (Mild, Verified 05/20/22 00:15) Home Medications: Duloxetine HCl 60 mg PO DAILY 05/20/22 [History] Hx Tetanus, Diphtheria Vaccination/Date Given: Yes Hx Influenza Vaccination/Date Given: No Hx Pneumococcal Vaccination/Date Given: No Immunizations Up to Date: Yes Travel Risk - International Travel Have you traveled outside of the country in past 3 weeks: No - Coronavirus Screening Are you exhibiting any of the following symptoms?: No Close contact with a COVID-19 positive Pt in past 14-21 Days: No - Vaccine Status Have you recieved a Covid-19 vaccination: No - Review of Systems Constitutional: No Symptoms Eyes: No Symptoms Ears, Nose, & Throat: No Symptoms Respiratory: Stridor Cardiac: No Symptoms Abdominal/Gastrointestinal: No Symptoms Genitourinary Symptoms: No Symptoms Musculoskeletal: Joint Pain (Right shoulder) Skin: No Symptoms Neurological: No Symptoms Psychological: No Symptoms Endocrine: No Symptoms Hematologic/Lymphatic: No Symptoms Immunological/Allergic: No Symptoms All Other Systems: Reviewed and Negative - Past Medical History Pertinent Past Medical History: Yes Neurological History: No Pertinent History ENT History: No Pertinent History Cardiac History: No Pertinent History Respiratory History: Asthma, Emphysema Endocrine Medical History: No Pertinent History Musculoskeletal History: No Pertinent History GI Medical History: No Pertinent History History: No Pertinent History Psycho-Social History: Anxiety, Depression Female Reproductive Disorders: No Pertinent History - Past Surgical History Past Surgical History: Yes Neuro Surgical History: No Pertinent History Cardiac: No Pertinent History Respiratory: No Pertinent History Gastrointestinal: No Pertinent History Genitourinary: Other Musculoskeletal: No Pertinent History Female Surgical History: Hysterectomy, Section Other Surgical History: TONSILECTOMY, ear tubes, bladder tie up, pinky toes corrected - Social History Smoking Status: Never smoker How long have you smoked: 6 YEARS Exposure to second hand smoke: Yes Drug Use: none Patient Lives Alone: No - Female History Hx Now: No - Nursing Vital Signs Nursing Vital Signs: Initial Vital Signs Temperature 97.0 F 05/20/22 00:04 Pulse Rate 62 05/20/22 00:04 Respiratory Rate 18 05/20/22 00:04 Blood Pressure 139/82 05/20/22 00:04 O2 Sat by Pulse Oximetry 100 05/20/22 00:04 Pain Scale Pain Intensity 8 - Physical Exam General Appearance: no apparent distress, alert, obese Eyes, Ears, Nose, Throat Exam: normal ENT inspection, moist mucous membranes Neck Exam: normal inspection, non-tender, supple, full range of motion Cardiovascular/Respiratory Exam: chest non-tender, no respiratory distress Abdominal Exam: non-tender Back Exam: normal inspection, normal range of motion, No CVA tenderness, No vertebral tenderness Shoulder Exam: normal inspection, no evidence of injury, normal ROM, soft tissue tenderness (Right shoulder) Elbow/Forearm Exam: normal inspection, non-tender, no evidence of injury, normal ROM Wrist Exam: normal inspection, non-tender, no evidence of injury, normal ROM Hand Exam: normal inspection, non-tender, no evidence of injury, normal ROM Neuro/Tendon Exam: normal sensation, normal motor functions, normal tendon functions, responds to pain Mental Status Exam: alert, oriented x 3, cooperative Skin Exam: normal color, warm, dry SpO2 Interpretation: normal SpO2: 100 O2 Delivery: Room Air - Progress Progress: unchanged Counseled pt/family regarding: diagnosis, need for follow-up - Departure Departure Disposition: Home Clinical Impression: Right shoulder pain Condition: Stable Critical Care Time: No Referrals: PAIGE JI NP [Primary Care Provider] - Follow up/PCP as directed Additional Instructions: Take your medication as prescribed. Keep your appointment with your primary care doctor on 05/21/2022 Prescriptions: Prednisone 10 mg [Deltasone 10 mg] 10 mg PO TID #12 tablet Orphenadrine Citrate 100 mg [Norflex 100 MG Tablet] 100 mg PO BID #10 tab
[2022-05-20] MEDS ORDERED: DELTASONE 20 MG PO ONE (00:33)
[2022-05-20] MEDS ORDERED: PERCOCET TABLET 5/325MG ONE (00:35)
[2022-05-20] MEDS ORDERED: DELTASONE 20 MG ONE (00:35)
== END 2022-05-20 00:53 | disposition home or self-care (01) ==
LOC: ED 00:01
DX: M25.511 Pain in right shoulder (principal); J43.9 Emphysema, unspecified; Z79.52 Long term (current) use of systemic steroids; Z28.310 Unvaccinated for COVID-19
CPT/HCPCS: 99283; A9270-GY

== ENCOUNTER 2022-12-08 16:30 | Emergency (ER) | payer BC, MEDICAID ==
--- NOTE | 2022-12-08 16:34 | ERPHSYRPT ---
- History of Present Illness Time Seen by Provider: 12/08/22 16:33 Source: patient, family Exam Limitations: no limitations Physician History: This is a 37-year-old right handed obese white female who has had right shoulder pain for over 6 months. She states in the last several weeks its been worse. She states that she had fallen twice since November 17. She is never obtained an x- ray. Patient has no chest pain. She has no shortness of breath. Occurred: other (Right shoulder pain for over 6 months) Method of Injury: fell (Fell twice since November 17) Quality: aching Severity of Pain-Max: mild (To moderate) Severity of Pain-Current: mild (Moderate) Extremities Pain Location: shoulder: right Modifying Factors: Improves With: movement Associated Symptoms: No chest discomfort, No chest pain, No dyspnea, No short of breath Allergies/Adverse Reactions: ceftriaxone [From Rocephin] Allergy (Intermediate, Verified 12/08/22 16:37) Anaphylactic Reaction bupropion HCl [From Wellbutrin] Allergy (Mild, Verified 12/08/22 16:37) diphenhydramine HCl [From Benadryl] Allergy (Mild, Verified 12/08/22 16:37) tramadol Allergy (Mild, Verified 12/08/22 16:37) Hx Tetanus, Diphtheria Vaccination/Date Given: Yes Hx Influenza Vaccination/Date Given: No Hx Pneumococcal Vaccination/Date Given: No Travel Risk - International Travel Have you traveled outside of the country in past 3 weeks: No - Coronavirus Screening Are you exhibiting any of the following symptoms?: No Close contact with a COVID-19 positive Pt in past 14-21 Days: No - Vaccine Status Have you recieved a Covid-19 vaccination: No - Review of Systems Constitutional: No Symptoms Eyes: No Symptoms Ears, Nose, & Throat: No Symptoms Respiratory: No Symptoms Cardiac: No Symptoms, No Chest Pain Abdominal/Gastrointestinal: No Symptoms Genitourinary Symptoms: No Symptoms Musculoskeletal: Joint Pain Skin: No Symptoms (Right shoulder) Neurological: No Symptoms Psychological: No Symptoms Endocrine: No Symptoms Hematologic/Lymphatic: No Symptoms Immunological/Allergic: No Symptoms All Other Systems: Reviewed and Negative - Past Medical History Pertinent Past Medical History: Yes Neurological History: No Pertinent History ENT History: No Pertinent History Cardiac History: No Pertinent History Respiratory History: Asthma, Emphysema Endocrine Medical History: Other Musculoskeletal History: Arthritis GI Medical History: No Pertinent History History: No Pertinent History Psycho-Social History: Anxiety, Depression Female Reproductive Disorders: No Pertinent History Other Medical History: Anxiety, has been referred to thyroid specialist, COVID- 19, , Tonsillectomy, B pinky toe correction, cystectomy, bladder correction - Past Surgical History Past Surgical History: Yes Neuro Surgical History: No Pertinent History Cardiac: No Pertinent History Respiratory: No Pertinent History Gastrointestinal: No Pertinent History Genitourinary: Other Musculoskeletal: No Pertinent History Female Surgical History: Hysterectomy, Section Other Surgical History: TONSILECTOMY, ear tubes, bladder tie up, pinky toes corrected - Social History Smoking Status: Never smoker How long have you smoked: 6 YEARS Exposure to second hand smoke: Yes Drug Use: none Patient Lives Alone: No - Nursing Vital Signs Nursing Vital Signs: Initial Vital Signs Temperature 97.4 F 12/08/22 16:39 Pulse Rate 62 12/08/22 16:39 Respiratory Rate 18 12/08/22 16:39 Blood Pressure 118/72 12/08/22 16:39 O2 Sat by Pulse Oximetry 100 12/08/22 16:39 Pain Scale Pain Intensity 10 - Physical Exam General Appearance: no apparent distress, alert, obese Eyes, Ears, Nose, Throat Exam: normal ENT inspection, moist mucous membranes Neck Exam: normal inspection, non-tender, supple, full range of motion Cardiovascular/Respiratory Exam: chest non-tender, no respiratory distress Abdominal Exam: non-tender Back Exam: normal inspection, normal range of motion, No CVA tenderness, No vertebral tenderness Shoulder Exam: normal inspection, no evidence of injury, normal ROM, soft tissue tenderness (In the area posterior right shoulder joint space with some tenderness in the scapula on the right side.) Elbow/Forearm Exam: normal inspection, non-tender, no evidence of injury, normal ROM Wrist Exam: normal inspection, non-tender, no evidence of injury, normal ROM Hand Exam: normal inspection, non-tender, no evidence of injury, normal ROM Neuro/Tendon Exam: normal sensation, normal motor functions, normal tendon functions Mental Status Exam: alert, oriented x 3, cooperative Skin Exam: normal color, warm, dry SpO2 Interpretation: normal O2 Delivery: Room Air - Course Nursing assessment & vital signs reviewed: Yes Ordered Tests: Active Orders 24 hr Category Date Time Status SHOULDER Stat Exams 12/08/22 17:37 Taken Medication Summary Discontinued Medications Generic Name Dose Route Start Last Admin Trade Name Gabi PRN Reason Stop Dose Admin Oxycodone/Acetaminophen 2 tab 12/08/22 18:17 Oxycodone Hcl/Apap 5 Mg/325 Mg Tablet PO 12/08/22 18:18 SENT HOME W/ PATIENT STA - Progress Progress: pain not gone completely, re-examined Progress Note: 12/08/22 18:34 X-ray right shoulder was interpreted by me. There is no evidence of any acute fracture or dislocation. This patient's medical issue is 1 of low complexity. The level of complexity and the work-up performed is based on review of the old medical history, medication list, drug allergy list, history present illness and examination. The work-up performed was an x-ray of the right shoulder. I reviewed the x-ray films and made the interpretation as above. Patient has right shoulder pain and right scapular pain. The patient will be given 2 take-home Percocet 5/325 to take every 8 hours as needed for pain. I will also send prednisone and Norflex electronically to her pharmacy. She is to follow-up with her primary care physician for further evaluation and management. Counseled pt/family regarding: diagnosis, need for follow-up, rad results Medical Desision Making - Discussion of managment Reviewed:: Test results Agreed on:: Treatment plan, need for follow-up - Diagnostic Testing Radiological Interpretation: Interpreted by me - Risk of complications The pt has a mod risk of morbidity or mortality based on: Need for prescription drug management - Departure Departure Disposition: Home Clinical Impression: Right shoulder pain, Pain of right scapula Condition: Stable Critical Care Time: No Referrals: PAIGE JI NP [Primary Care Provider] - Follow up/PCP as directed Additional Instructions: Take your medication as prescribed. Follow-up with your primary care physician on 12/10/2022 to make arranges for follow-up appointment in the next 5 to 7 days for further evaluation and management. Prescriptions: Prednisone 10 mg [Deltasone 10 mg] 10 mg PO TID #12 tablet Orphenadrine Citrate 100 mg [Norflex 100 MG Tablet] 100 mg PO BID #10 tab
[2022-12-08 16:43] VITALS: BP 118/72; PULSE 62; O2SAT 100
[2022-12-08] MEDS ORDERED: PERCOCET TABLET 5/325MG PO STA (18:17)
[2022-12-08] MEDS ORDERED: PERCOCET TABLET 5/325MG ONE (18:47)
--- NOTE | 2022-12-08 20:56 | XRAY ---
Indication: Pain. No known injury. Comparison: None 3 view right shoulder demonstrates a few small mediastinal calcified nodes. No other bony, articular, or soft tissue abnormalities.
== END 2022-12-08 19:00 | disposition home or self-care (01) ==
LOC: ED 16:30
DX: M25.511 Pain in right shoulder (principal); Z79.52 Long term (current) use of systemic steroids; Z28.310 Unvaccinated for COVID-19; Z86.16 Personal history of COVID-19
CPT/HCPCS: 73030; 99282; A9270-GY

== ENCOUNTER 2023-03-01 09:26 | Emergency (ER) | payer SELFPAY ==
[2023-03-01 09:42] VITALS: BP 119/84; PULSE 72; O2SAT 97
--- NOTE | 2023-03-01 09:45 | ERPHSYRPT ---
- History of Present Illness Time Seen by Provider: 03/01/23 09:40 Source: patient Exam Limitations: no limitations Physician History: Patient is a 37-year-old white female who presents with urinary tract symptoms for 4 to 5 days getting worse. She has frequency which is gotten so severe she had to leave work today she also has had urgency she has had dysuria nausea and she is noted some blood in her urine. She also has been somewhat dizzy. She does have a history of urinary tract infections but not particularly frequent. Timing/Duration: day(s) (5) Activites at Onset: none Quality: burning, pressure, sharpness, stabbing Onset Location: suprapubic, left flank, abdominal pain, pelvic pain Pain Radiation: suprapubic Severity of Pain-Max: moderate Severity of Pain-Current: moderate Prior abdominal problems: none Sexual intercourse history: non-contributory Modifying Factors: Improves With: urinating Associated Symptoms: nausea, dysuria, polyuria, urinary frequency, No fever, No chills, No diaphoresis Allergies/Adverse Reactions: ceftriaxone [From Rocephin] Allergy (Intermediate, Verified 03/01/23 09:35) Anaphylactic Reaction bupropion HCl [From Wellbutrin] Allergy (Mild, Verified 03/01/23 09:35) diphenhydramine HCl [From Benadryl] Allergy (Mild, Verified 03/01/23 09:35) tramadol Allergy (Mild, Verified 03/01/23 09:35) Hx Tetanus, Diphtheria Vaccination/Date Given: Yes Hx Influenza Vaccination/Date Given: No Hx Pneumococcal Vaccination/Date Given: No Travel Risk - Vaccine Status Have you recieved a Covid-19 vaccination: No Neuro Psych Sales Specialist: Unknown - Vaccination Dates Dates if Unknown: na - Review of Systems Constitutional: No Fever, No Chills Eyes: No Symptoms Ears, Nose, & Throat: No Symptoms Respiratory: No Cough, No Dyspnea Cardiac: No Chest Pain, No Edema, No Syncope Abdominal/Gastrointestinal: No Abdominal Pain, No Nausea, No Vomiting, No Diarrhea Genitourinary Symptoms: Dysuria, Frequency, Hematuria, Urgency Musculoskeletal: Back Pain, No Neck Pain Skin: No Rash Neurological: No Dizziness, No Focal Weakness, No Sensory Changes Psychological: No Symptoms Endocrine: No Symptoms All Other Systems: Reviewed and Negative - Past Medical History Pertinent Past Medical History: Yes Neurological History: No Pertinent History ENT History: No Pertinent History Cardiac History: No Pertinent History Respiratory History: Asthma, Emphysema Endocrine Medical History: Other Musculoskeletal History: Arthritis GI Medical History: No Pertinent History History: No Pertinent History Psycho-Social History: Anxiety, Depression Female Reproductive Disorders: No Pertinent History Other Medical History: Anxiety, has been referred to thyroid specialist, COVID- 19, , Tonsillectomy, B pinky toe correction, cystectomy, bladder correction - Past Surgical History Past Surgical History: Yes Neuro Surgical History: No Pertinent History Cardiac: No Pertinent History Respiratory: No Pertinent History Gastrointestinal: No Pertinent History Genitourinary: Other Musculoskeletal: No Pertinent History Female Surgical History: Hysterectomy, Section Other Surgical History: TONSILECTOMY, ear tubes, bladder tie up, pinky toes corrected - Social History Smoking Status: Never smoker How long have you smoked: 6 YEARS Exposure to second hand smoke: Yes Drug Use: none Patient Lives Alone: No - Nursing Vital Signs Nursing Vital Signs: Initial Vital Signs Temperature 98.3 F 03/01/23 09:36 Pulse Rate 72 03/01/23 09:36 Respiratory Rate 18 03/01/23 09:36 Blood Pressure 119/84 03/01/23 09:36 O2 Sat by Pulse Oximetry 97 03/01/23 09:36 Pain Scale Pain Intensity 10 - Physical Exam General Appearance: mild distress, alert Eye Exam: PERRL/EOMI, eyes nml inspection Ears, Nose, Throat Exam: normal ENT inspection, TMs normal, pharynx normal, moist mucous membranes Neck Exam: normal inspection, non-tender, supple, full range of motion Respiratory Exam: normal breath sounds, lungs clear, No respiratory distress Cardiovascular Exam: regular rate/rhythm, normal heart sounds, normal peripheral pulses Gastrointestinal/Abdomen Exam: soft, normal bowel sounds, tenderness, No mass Back Exam: normal inspection, normal range of motion, No CVA tenderness, No vertebral tenderness Extremity Exam: normal inspection, normal range of motion, pelvis stable Neurologic Exam: alert, oriented x 3, cooperative, speech professor II-XII nml as tested, normal mood/affect, sensation nml, No motor deficits Skin Exam: normal color, warm, dry Lymphatic Exam: No adenopathy SpO2 Interpretation: normal SpO2: 97 O2 Delivery: Room Air - Course Nursing assessment & vital signs reviewed: Yes Ordered Tests: Active Orders 24 hr Category Date Time Status CULTURE,URINE Stat Lab 03/01/23 09:34 Received UA W/RFX UR CULTURE Stat Lab 03/01/23 09:34 Completed Lab/Rad Data: Laboratory Results 03/01/23 Range/Units 09:34 Urine Color [place] A (Yellow) Urine Appearance Cloudy A (Clear) Urine pH 6.0 (4.6-8.0) Ur Specific [place] 1.020 (1.005-1.030) Urine Protein 300 A (Negative) Urine Glucose (UA) Negative (Negative) mg/dL Urine Ketones Negative (Negative) Urine Blood Large A (Negative) Urine Nitrite Negative (Negative) Urine Bilirubin Small A (Negative) Urine Urobilinogen 0.2 (0.2) mg/dL Ur Leukocyte Esterase Large A (Negative) U Hyaline Cast (Auto) NONE SEEN (0-2) /LPF Urine Microscopic RBC >100 A (0-5) /HPF Urine Microscopic WBC >100 A (0-5) /HPF Ur Epithelial Cells Many A (None Seen) /HPF Urine Bacteria Moderate A (None Seen) /HPF Urine Culture Reflexed YES (NO) - Progress Progress: unchanged Air Movement: good Blood Culture(s) Obtained: No Antibiotics given: Yes Medical Desision Making - Diagnostic Testing Diagnostic test were ordered, analyzed, and reviewed by me: Yes - Risk of complications Low Risk: Low risk of morbidity from additional dx testing or treatment - Departure Departure Disposition: Home Clinical Impression: Urinary tract infection Condition: Stable Critical Care Time: No Referrals: EDSON MATIAS NP, RN [Primary Care Provider] - Follow up/PCP as directed Instructions: Urinary Tract Infection, Adult (DC) Prescriptions: Ciprofloxacin [Cipro 500 MG] 500 mg PO BID #14 tablet Phenazopyridine HCl 200 mg [Pyridium 200 mg] 200 mg PO TID #6 tablet
[2023-03-01 09:49] LABS: Bacteria Moderate /HPF (None Seen); Bilirubin Small (Negative); Blood Large (Negative); Epithelial Cells Many /HPF (None Seen); Glucose, Urine Negative (Negative); Hyaline Casts NONE SEEN /LPF (0-2); Ketones Negative (Negative); Leukocyte Esterase Large (Negative); Nitrite Negative (Negative); Protein,Urine Dip 300 (Negative); RBC >100 /HPF (0-5); Urobilinogen 0.2 mg/dL (0.2); WBC >100 /HPF (0-5)
[2023-03-01 10:02] LABS: ADD URINE CULTURE? YES (NO); Appearance Cloudy (Clear)
[2023-03-01] MEDS ORDERED: Cipro 500 MG PO ONE (10:14)
[2023-03-01] MEDS ORDERED: PYRIDIUM 200 MG ONE (10:15)
[2023-03-01] MEDS ORDERED: PYRIDIUM 200 MG PO ONE (10:15)
[2023-03-01] MEDS ORDERED: Cipro 500 MG ONE (10:15)
== END 2023-03-01 10:28 | disposition home or self-care (01) ==
LOC: ED 09:26
DX: N39.0 Urinary tract infection, site not specified (principal); R35.0 Frequency of micturition; R39.15 Urgency of urination; R30.0 Dysuria; R11.0 Nausea; R42 Dizziness and giddiness; Z86.16 Personal history of COVID-19
CPT/HCPCS: 81001; 87077; 87086; 87186; 99283; A9270-GY

== ENCOUNTER 2023-03-20 08:54 | Emergency (ER) | payer SELFPAY ==
--- NOTE | 2023-03-20 08:56 | ERPHSYRPT ---
- History of Present Illness Time Seen by Provider: 03/20/23 08:56 Source: patient Exam Limitations: no limitations Physician History: This is a 37-year-old overweight white female with a history of anxiety/depression, asthma, and emphysema who states that she has had episodes of low blood pressure in the last several days. She denies illicit drug use. She denies chest pain. She denies shortness of breath. She has no abdominal pain. She denies fever. She denies cough. Patient has occasional urinary tract infections but she does not have genitourinary symptoms at this time. Patient denies any new medications. Today, while at work, she felt a little dizzy and nauseated and her blood pressure was taken. She has no history of recent, significant blood loss. Patient systolic blood pressure was 65 per her report. Patient arrives to the emergency department with a heart rate in the 60s and a systolic blood pressure of 125. Her room air oxygenation is 99%. Timing/Duration: intermittent Severity: mild Modifying Factors: Improves With: nothing Associated Symptoms: nausea, No shortness of breath, No chest pain, No headaches, No weakness Allergies/Adverse Reactions: ceftriaxone [From Rocephin] Allergy (Intermediate, Verified 03/20/23 09:06) Anaphylactic Reaction bupropion HCl [From Wellbutrin] Allergy (Mild, Verified 03/20/23 09:06) diphenhydramine HCl [From Benadryl] Allergy (Mild, Verified 03/20/23 09:06) tramadol Allergy (Mild, Verified 03/20/23 09:06) Home Medications: Duloxetine HCl [Cymbalta] 60 mg PO DAILY 03/03/23 [History] Multivitamin 1 tab PO DAILY 03/20/23 [History] Hx Tetanus, Diphtheria Vaccination/Date Given: Yes Hx Influenza Vaccination/Date Given: No Hx Pneumococcal Vaccination/Date Given: No Travel Risk - International Travel Have you traveled outside of the country in past 3 weeks: No - Coronavirus Screening Are you exhibiting any of the following symptoms?: No Close contact with a COVID-19 positive Pt in past 14-21 Days: No - Vaccine Status Have you recieved a Covid-19 vaccination: No 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 - Vaccination Dates Dates if Unknown: na - Review of Systems Constitutional: No Symptoms Eyes: No Symptoms Ears, Nose, & Throat: No Symptoms Respiratory: No Symptoms Cardiac: No Symptoms Abdominal/Gastrointestinal: Nausea, No Abdominal Pain, No Vomiting, No Diarrhea, No Appetite Changes Genitourinary Symptoms: No Symptoms Musculoskeletal: No Symptoms Skin: No Symptoms Neurological: Dizziness Psychological: No Symptoms Endocrine: No Symptoms Hematologic/Lymphatic: No Symptoms Immunological/Allergic: No Symptoms All Other Systems: Reviewed and Negative - Past Medical History Pertinent Past Medical History: Yes Neurological History: No Pertinent History ENT History: No Pertinent History Cardiac History: No Pertinent History Respiratory History: Asthma, Emphysema Endocrine Medical History: Other Musculoskeletal History: Arthritis GI Medical History: No Pertinent History History: No Pertinent History Psycho-Social History: Anxiety, Depression Female Reproductive Disorders: No Pertinent History Other Medical History: Anxiety, has been referred to thyroid specialist, COVID- 19, , Tonsillectomy, B pinky toe correction, cystectomy, bladder correction - Past Surgical History Past Surgical History: Yes Neuro Surgical History: No Pertinent History Cardiac: No Pertinent History Respiratory: No Pertinent History Gastrointestinal: No Pertinent History Genitourinary: Other Musculoskeletal: No Pertinent History Female Surgical History: Hysterectomy, Section Other Surgical History: TONSILECTOMY, ear tubes, bladder tie up, pinky toes corrected - Social History Smoking Status: Never smoker How long have you smoked: 6 YEARS Exposure to second hand smoke: Yes Drug Use: none Patient Lives Alone: No - Nursing Vital Signs Nursing Vital Signs: Initial Vital Signs Pulse Rate 64 03/20/23 09:05 Respiratory Rate 17 03/20/23 09:05 Blood Pressure 125/81 03/20/23 09:05 O2 Sat by Pulse Oximetry 99 03/20/23 09:05 Pain Scale Pain Intensity 0 - Physical Exam General Appearance: no apparent distress, alert, anxiety Eye Exam: PERRL/EOMI, eyes nml inspection Ears, Nose, Throat Exam: normal ENT inspection, moist mucous membranes Neck Exam: normal inspection, non-tender, supple, full range of motion Respiratory Exam: normal breath sounds, lungs clear, airway intact, No chest tenderness, No respiratory distress Cardiovascular Exam: regular rate/rhythm, normal heart sounds, normal peripheral pulses Gastrointestinal/Abdomen Exam: soft, normal bowel sounds, No tenderness Pelvic Exam: not done Rectal Exam: not done Back Exam: normal inspection, normal range of motion, No CVA tenderness, No vertebral tenderness Extremity Exam: normal inspection, normal range of motion, pelvis stable Neurologic Exam: alert, oriented x 3, cooperative, livestock farmers II-XII nml as tested, normal mood/affect, nml cerebellar function, nml station & gait, sensation nml Skin Exam: normal color, warm, dry Lymphatic Exam: No adenopathy SpO2 Interpretation: normal O2 Delivery: Room Air - Course Nursing assessment & vital signs reviewed: Yes Ordered Tests: Active Orders 24 hr Category Date Time Status Echometer Engineer STAT Care 03/20/23 09:25 Active EKG-ER Only STAT Care 03/20/23 09:24 Active CBC W DIFF Stat Lab 03/20/23 09:39 Completed CMP Stat Lab 03/20/23 09:39 Completed D-DIMER QUANTITATIVE Stat Lab 03/20/23 09:39 Completed MONO SCREEN Stat Lab 03/20/23 09:58 Completed T4 (Thyroxine) Stat Lab 03/20/23 09:39 Completed TROPONIN Q4H Lab 03/20/23 09:39 Completed TROPONIN Q4H Lab 03/20/23 13:30 Ordered TROPONIN Q4H Lab 03/20/23 17:30 Ordered TSH, 3RD Generation Stat Lab 03/20/23 09:39 Completed UA W/RFX UR CULTURE Stat Lab 03/20/23 09:52 Completed Medication Summary Discontinued Medications Generic Name Dose Route Start Last Admin Trade Name Freq PRN Reason Stop Dose Admin Ondansetron HCl 4 mg 03/20/23 09:33 03/20/23 09:43 Zofran 4 Mg/Udtablet Orally Disintegrating PO 03/20/23 09:34 4 mg STAT ONE Administration Ondansetron HCl Confirm 03/20/23 09:42 Zofran 4 Mg/Udtablet Orally Disintegrating Administered 03/20/23 09:43 Dose 4 mg .ROUTE .STK-MED ONE Lab/Rad Data: Laboratory Result Diagrams 03/20/23 09:39 03/20/23 09:39 Laboratory Results 03/20/23 03/20/23 03/20/23 Range/Units 09:58 09:52 09:46 WBC (4.0-10.5) x10^3/uL RBC (4.1-5.4) x10^6/uL Hgb (12.0-16.0) g/dL Hct (35-47) % MCV (78-100) fL MCH (26-32) pg MCHC (32-36) g/dL RDW (11.5-14.0) % Plt Count (150-450) x10^3/uL MPV (7.5-11.0) fL Gran % (36.0-66.0) % Immature Gran % (Auto) (0.00-0.4) % Nucleat RBC Rel Count (0.00-0.1) % Eos # (Auto) (0-0.5) x10^3/uL Immature Gran # (Auto) (0.00-0.03) x10^3u/L Absolute Lymphs (auto) (1.0-4.6) x10^3/uL Absolute Monos (auto) (0.0-1.3) x10^3/uL Absolute Nucleated RBC (0.00-0.01) x10^3u/L Lymphocytes % (24.0-44.0) % Monocytes % (0.0-12.0) % Eosinophils % (0.00-5.0) % Basophils % (0.0-0.4) % Absolute Granulocytes (1.4-6.9) x10^3/uL Basophils # (0-0.4) x10^3/uL D-Dimer (0.0-0.50) mg/L Sodium (137-145) mmol/L Potassium (3.5-5.1) mmol/L Chloride (98-107) mmol/L Carbon Dioxide (22-30) mmol/L Anion Gap (5-15) MEQ/L BUN (7-17) mg/dL Creatinine (0.52-1.04) mg/dL Estimated GFR ML/MIN Glucose (74-106) mg/dL Calcium (8.4-10.2) mg/dL Total Bilirubin (0.2-1.3) mg/dL AST (14-36) U/L ALT (0-35) U/L Alkaline Phosphatase (38-126) U/L Troponin I (0.000-0.034) ng/mL Serum Total Protein (6.3-8.2) g/dL Albumin (3.5-5.0) g/dL Thyroxine (T4) (5.53-10.96) ug/dL TSH 3rd Generation (0.47-4.68) mIU/L Urine Color Yellow (Yellow) Urine Appearance Clear (Clear) Urine pH 6.5 (4.6-8.0) Ur Specific [place] 1.015 (1.005-1.030) Urine Protein Negative (Negative) Urine Glucose (UA) Negative (Negative) mg/dL Urine Ketones Negative (Negative) Urine Blood Negative (Negative) Urine Nitrite Negative (Negative) Urine Bilirubin Negative (Negative) Urine Urobilinogen 0.2 (0.2) mg/dL Ur Leukocyte Esterase Negative (Negative) U Hyaline Cast (Auto) NONE SEEN (0-2) /LPF Urine Microscopic RBC 0-2 (0-5) /HPF Urine Microscopic WBC 0-2 (0-5) /HPF Ur Epithelial Cells Few (None Seen) /HPF Urine Bacteria None Seen (None Seen) /HPF Urine Culture Reflexed NO (NO) Monoscreen NEGATIVE (NEGATIVE) Influenza Type A Ag NEGATIVE (NEGATIVE) Influenza Type B Ag NEGATIVE (NEGATIVE) RSV (PCR) NEGATIVE (NEGATIVE) SARS-CoV-2 (PCR) NEGATIVE (NEGATIVE) 03/20/23 03/20/23 03/20/23 Range/Units 09:39 09:39 09:39 WBC (4.0-10.5) x10^3/uL RBC (4.1-5.4) x10^6/uL Hgb (12.0-16.0) g/dL Hct (35-47) % MCV (78-100) fL MCH (26-32) pg MCHC (32-36) g/dL RDW (11.5-14.0) % Plt Count (150-450) x10^3/uL MPV (7.5-11.0) fL Gran % (36.0-66.0) % Immature Gran % (Auto) (0.00-0.4) % Nucleat RBC Rel Count (0.00-0.1) % Eos # (Auto) (0-0.5) x10^3/uL Immature Gran # (Auto) (0.00-0.03) x10^3u/L Absolute Lymphs (auto) (1.0-4.6) x10^3/uL Absolute Monos (auto) (0.0-1.3) x10^3/uL Absolute Nucleated RBC (0.00-0.01) x10^3u/L Lymphocytes % (24.0-44.0) % Monocytes % (0.0-12.0) % Eosinophils % (0.00-5.0) % Basophils % (0.0-0.4) % Absolute Granulocytes (1.4-6.9) x10^3/uL Basophils # (0-0.4) x10^3/uL D-Dimer 0.37 (0.0-0.50) mg/L Sodium 140 (137-145) mmol/L Potassium 3.6 (3.5-5.1) mmol/L Chloride 101 (98-107) mmol/L Carbon Dioxide 32 H (22-30) mmol/L Anion Gap 10.0 (5-15) MEQ/L BUN 10 (7-17) mg/dL Creatinine 0.71 (0.52-1.04) mg/dL Estimated GFR > 60.0 ML/MIN Glucose 92 (74-106) mg/dL Calcium 9.3 (8.4-10.2) mg/dL Total Bilirubin 0.40 (0.2-1.3) mg/dL AST 24 (14-36) U/L ALT 30 (0-35) U/L Alkaline Phosphatase 42 (38-126) U/L Troponin I < 0.012 (0.000-0.034) ng/mL Serum Total Protein 7.3 (6.3-8.2) g/dL Albumin 4.2 (3.5-5.0) g/dL Thyroxine (T4) 7.97 (5.53-10.96) ug/dL TSH 3rd Generation 1.700 (0.47-4.68) mIU/L Urine Color (Yellow) Urine Appearance (Clear) Urine pH (4.6-8.0) Ur Specific [place] (1.005-1.030) Urine Protein (Negative) Urine Glucose (UA) (Negative) mg/dL Urine Ketones (Negative) Urine Blood (Negative) Urine Nitrite (Negative) Urine Bilirubin (Negative) Urine Urobilinogen (0.2) mg/dL Ur Leukocyte Esterase (Negative) U Hyaline Cast (Auto) (0-2) /LPF Urine Microscopic RBC (0-5) /HPF Urine Microscopic WBC (0-5) /HPF Ur Epithelial Cells (None Seen) /HPF Urine Bacteria (None Seen) /HPF Urine Culture Reflexed (NO) Monoscreen (NEGATIVE) Influenza Type A Ag (NEGATIVE) Influenza Type B Ag (NEGATIVE) RSV (PCR) (NEGATIVE) SARS-CoV-2 (PCR) (NEGATIVE) 03/20/23 Range/Units 09:39 WBC 8.0 (4.0-10.5) x10^3/uL RBC 4.19 (4.1-5.4) x10^6/uL Hgb 13.6 (12.0-16.0) g/dL Hct 41.6 (35-47) % MCV 99.3 (78-100) fL MCH 32.5 H (26-32) pg MCHC 32.7 (32-36) g/dL RDW 12.2 (11.5-14.0) % Plt Count 248 (150-450) x10^3/uL MPV 9.1 (7.5-11.0) fL Gran % 67.2 H (36.0-66.0) % Immature Gran % (Auto) 0.1 (0.00-0.4) % Nucleat RBC Rel Count 0.0 (0.00-0.1) % Eos # (Auto) 0.02 (0-0.5) x10^3/uL Immature Gran # (Auto) 0.01 (0.00-0.03) x10^3u/L Absolute Lymphs (auto) 2.20 (1.0-4.6) x10^3/uL Absolute Monos (auto) 0.37 (0.0-1.3) x10^3/uL Absolute Nucleated RBC 0.00 (0.00-0.01) x10^3u/L Lymphocytes % 27.5 (24.0-44.0) % Monocytes % 4.6 (0.0-12.0) % Eosinophils % 0.3 (0.00-5.0) % Basophils % 0.3 (0.0-0.4) % Absolute Granulocytes 5.37 (1.4-6.9) x10^3/uL Basophils # 0.02 (0-0.4) x10^3/uL D-Dimer (0.0-0.50) mg/L Sodium (137-145) mmol/L Potassium (3.5-5.1) mmol/L Chloride (98-107) mmol/L Carbon Dioxide (22-30) mmol/L Anion Gap (5-15) MEQ/L BUN (7-17) mg/dL Creatinine (0.52-1.04) mg/dL Estimated GFR ML/MIN Glucose (74-106) mg/dL Calcium (8.4-10.2) mg/dL Total Bilirubin (0.2-1.3) mg/dL AST (14-36) U/L ALT (0-35) U/L Alkaline Phosphatase (38-126) U/L Troponin I (0.000-0.034) ng/mL Serum Total Protein (6.3-8.2) g/dL Albumin (3.5-5.0) g/dL Thyroxine (T4) (5.53-10.96) ug/dL TSH 3rd Generation (0.47-4.68) mIU/L Urine Color (Yellow) Urine Appearance (Clear) Urine pH (4.6-8.0) Ur Specific [place] (1.005-1.030) Urine Protein (Negative) Urine Glucose (UA) (Negative) mg/dL Urine Ketones (Negative) Urine Blood (Negative) Urine Nitrite (Negative) Urine Bilirubin (Negative) Urine Urobilinogen (0.2) mg/dL Ur Leukocyte Esterase (Negative) U Hyaline Cast (Auto) (0-2) /LPF Urine Microscopic RBC (0-5) /HPF Urine Microscopic WBC (0-5) /HPF Ur Epithelial Cells (None Seen) /HPF Urine Bacteria (None Seen) /HPF Urine Culture Reflexed (NO) Monoscreen (NEGATIVE) Influenza Type A Ag (NEGATIVE) Influenza Type B Ag (NEGATIVE) RSV (PCR) (NEGATIVE) SARS-CoV-2 (PCR) (NEGATIVE) - Progress Progress: improved, re-examined Progress Note: 03/20/23 10:46 This patient's medical issue is 1 of moderate complexity. Level of complexity in the work-up performed based on the patient past medical history, review of the patient's medication list, review of the patient's drug allergy list, history of present illness and physical findings on examination. The work-up in this patient includes twelve-lead EKG, CBC, CMP, troponin level, and urinalysis. I reviewed the results of these studies. There is no evidence of an acute, emergent medical issue. The patient's systolic blood pressure has remained in the normal range throughout her stay here in the emergency department. Counseled pt/family regarding: lab results, diagnosis, need for follow-up Medical Desision Making - Diagnostic Testing Diagnostic test were ordered, analyzed, and reviewed by me: Yes - Risk of complications Minimal Risk: Minimal risk of morbidity - Departure Departure Disposition: Home Clinical Impression: Normotensive, Well adult exam Condition: Stable Critical Care Time: No Referrals: EDSON MATIAS NP, RN [Primary Care Provider] - Follow up/PCP as directed Additional Instructions: Drink plenty of fluids. Take your medication as prescribed. Call your primary care provider today to make arranges for a follow-up appointment the next 3 to 5 days for further evaluation and management.
[2023-03-20 09:17] VITALS: TEMP 97.6
[2023-03-20] MEDS ORDERED: ZOFRAN ODT 4 MG ONE (09:42)
[2023-03-20] MEDS: ZOFRAN ODT 4 MG PO ONE (09:43)
[2023-03-20 09:46] LABS: Absolute Neutrophil Ct (ANC) 5.37 x10^3/uL (1.4-6.9); BASOPHIL % 0.3 % (0.0-0.4); Basophil (Absolute #) 0.02 x10^3/uL (0-0.4); Eosinophil % 0.3 % (0.00-5.0); Eosinophil (Absolute #) 0.02 x10^3/uL (0-0.5); Hematocrit 41.6 % (35-47); Hemoglobin 13.6 g/dL (12.0-16.0); IMMATURE GRAN # 0.01 x10^3u/L (0.00-0.03); IMMATURE GRAN % 0.1 % (0.00-0.4); Lymphocytes % 27.5 % (24.0-44.0); Mean Cell Volume 99.3 fL (78-100); Mean Corpuscular Hemoglobin 32.5 pg (26-32); Mean Corpuscular Hgb Concent. 32.7 g/dL (32-36); Mean Platelet Volume 9.1 fL (7.5-11.0); Monocyte (Absolute #) 0.37 x10^3/uL (0.0-1.3); Monocytes % 4.6 % (0.0-12.0); Neutrophil % 67.2 % (36.0-66.0); Platelet Count 248 x10^3/uL (150-450); Red Blood Count 4.19 x10^6/uL (4.1-5.4); Red Cell Distribution Width 12.2 % (11.5-14.0)
[2023-03-20 10:00] VITALS: PULSE 54
[2023-03-20 10:07] LABS: Appearance Clear (Clear); Bilirubin Negative (Negative); Blood Negative (Negative); Glucose, Urine Negative (Negative); Ketones Negative (Negative); Leukocyte Esterase Negative (Negative); Nitrite Negative (Negative); Ph 6.5 (4.6-8.0); Protein,Urine Dip Negative (Negative); Specific Gravity 1.015 (1.005-1.030); Urobilinogen 0.2 mg/dL (0.2)
[2023-03-20 10:15] LABS: Bacteria None Seen /HPF (None Seen); Epithelial Cells Few /HPF (None Seen); Hyaline Casts NONE SEEN /LPF (0-2); RBC 0-2 /HPF (0-5); WBC 0-2 /HPF (0-5)
[2023-03-20 10:22] LABS: ADD URINE CULTURE? NO (NO)
[2023-03-20 10:23] LABS: INFLUENZA A NEGATIVE (NEGATIVE); INFLUENZA B NEGATIVE (NEGATIVE); RESPIRATORY SYNCTIAL VIRUS NEGATIVE (NEGATIVE); SARS-CoV-2 Xpert Express NEGATIVE (NEGATIVE)
[2023-03-20 10:31] LABS: ALBUMIN 4.2 g/dL (3.5-5.0); ALKALINE PHOSPHATASE 42 U/L (38-126); BLOOD UREA NITROGEN 10 mg/dL (7-17); CHLORIDE 101 mmol/L (98-107); Calcium 9.3 mg/dL (8.4-10.2); Carbon Dioxide 32 mmol/L (22-30); Creatinine 1 0.71 mg/dL (0.52-1.04); EST GLOMERULAR FILTRATION RATE > 60.0 ML/MIN; Glucose 92 mg/dL (74-106); Potassium 3.6 mmol/L (3.5-5.1); SGOT/AST 24 U/L (14-36); SGPT/ALT 30 U/L (0-35); SODIUM 140 mmol/L (137-145); T4 (Thyroxine) 7.97 ug/dL (5.53-10.96); Total Protein 7.3 g/dL (6.3-8.2)
[2023-03-20 10:53] VITALS: O2SAT 100
[2023-03-20 11:10] VITALS: BP 107/72; RESP 23
== END 2023-03-20 11:09 | disposition home or self-care (01) ==
LOC: ED 08:54
DX: Z03.89 Encounter for observation for other suspected diseases and conditions ruled out (principal); I95.9 Hypotension, unspecified; R42 Dizziness and giddiness; R11.0 Nausea; Z79.899 Other long term (current) drug therapy; Z86.16 Personal history of COVID-19
CPT/HCPCS: 0241U; 36415; 80053; 81001; 84436; 84443; 84484; 85025; 85379; 86308; 93005; 93041; 99284; Q0162

== ENCOUNTER 2023-08-18 18:21 | Emergency (ER) | payer SELFPAY ==
[2023-08-18 18:29] VITALS: TEMP 98.6
[2023-08-18 19:08] LABS: Group A Strep NOT DETECTED (NEGATIVE)
[2023-08-18 19:18] LABS: INFLUENZA A NEGATIVE (NEGATIVE); INFLUENZA B NEGATIVE (NEGATIVE); RESPIRATORY SYNCTIAL VIRUS NEGATIVE (NEGATIVE); SARS-CoV-2 Xpert Express NEGATIVE (NEGATIVE)
[2023-08-18 19:35] VITALS: BP 110/57; PULSE 54; RESP 20
[2023-08-18 19:39] VITALS: O2SAT 97
--- NOTE | 2023-08-18 19:39 | ERPHSYRPT ---
- History of Present Illness Time Seen by Provider: 08/18/23 18:23 Source: patient Exam Limitations: no limitations Patient Subjective Stated Complaint: Pt states "For three weeks, my ears have been hurting and now my throat is killing me and I have a cough." Triage Nursing Assessment: Pt presented alert and oriented X3, skin pwd. PT ambulates with an upright steady gait, able to speak in clear full setnences. Pt resting comfortably on the bed. Physician History: 37 years old female presented in the ER with chief complaint of bilateral earache/pressure for almost 2 to 3 weeks with progressive sinus congestion fol lowed by sore throat and now having some dry cough without any difficulty breathing or chest pain. Patient reports it hurts to swallow solid food. No fever or chills reported. Feels weak fatigued tired with lack of energy. Has a positive contact with influenza. No abdominal pain nausea vomiting or diarrhea. Allergies/Adverse Reactions: ceftriaxone [From Rocephin] Allergy (Intermediate, Verified 03/20/23 09:06) Anaphylactic Reaction bupropion HCl [From Wellbutrin] Allergy (Mild, Verified 03/20/23 09:06) diphenhydramine HCl [From Benadryl] Allergy (Mild, Verified 03/20/23 09:06) tramadol Allergy (Mild, Verified 03/20/23 09:06) Home Medications: Duloxetine HCl [Cymbalta] 60 mg PO DAILY 03/03/23 [History] Multivitamin 1 tab PO DAILY 03/20/23 [History] Hx Tetanus, Diphtheria Vaccination/Date Given: Yes Hx Influenza Vaccination/Date Given: No Hx Pneumococcal Vaccination/Date Given: No Immunizations Up to Date: Yes Travel Risk - International Travel Have you traveled outside of the country in past 3 weeks: No - Coronavirus Screening Are you exhibiting any of the following symptoms?: Yes Symptoms: Cough: New Onset Close contact with a COVID-19 positive Pt in past 14-21 Days: No - Vaccine Status Have you recieved a Covid-19 vaccination: No 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 - Vaccination Dates Dates if Unknown: na - Review of Systems Constitutional: Fatigue, Weakness Eyes: No Symptoms Ears, Nose, & Throat: Nose Congestion, Sinus Drainage, Throat Pain, Throat Swelling Respiratory: Cough Cardiac: No Symptoms Abdominal/Gastrointestinal: No Symptoms Genitourinary Symptoms: No Symptoms Musculoskeletal: Myalgias Skin: No Symptoms Hematologic/Lymphatic: No Symptoms Immunological/Allergic: No Symptoms - Past Medical History Pertinent Past Medical History: Yes Neurological History: No Pertinent History ENT History: No Pertinent History Cardiac History: No Pertinent History Respiratory History: Asthma, Emphysema Endocrine Medical History: Other Musculoskeletal History: Arthritis GI Medical History: No Pertinent History History: No Pertinent History Psycho-Social History: Anxiety, Depression Female Reproductive Disorders: No Pertinent History Other Medical History: Anxiety, has been referred to thyroid specialist, COVID- 19, , Tonsillectomy, B pinky toe correction, cystectomy, bladder correction - Past Surgical History Past Surgical History: Yes Neuro Surgical History: No Pertinent History Cardiac: No Pertinent History Respiratory: No Pertinent History Gastrointestinal: No Pertinent History Genitourinary: Other Musculoskeletal: No Pertinent History Female Surgical History: Hysterectomy, Section Other Surgical History: TONSILECTOMY, ear tubes, bladder tie up, pinky toes corrected - Social History Smoking Status: Never smoker How long have you smoked: 6 YEARS Exposure to second hand smoke: Yes Drug Use: none Patient Lives Alone: No - Female History Hx Last Menstrual Period: partial hysterectomy no uterus Hx Now: No - Nursing Vital Signs Nursing Vital Signs: Initial Vital Signs Temperature 98.6 F 08/18/23 18:26 Pulse Rate 69 08/18/23 18:26 Respiratory Rate 22 08/18/23 18:26 Blood Pressure 120/67 08/18/23 18:26 O2 Sat by Pulse Oximetry 99 08/18/23 18:26 Pain Scale Pain Intensity 5 - Physical Exam General Appearance: no apparent distress, alert Eye Exam: PERRL/EOMI Ears, Nose, Throat Exam: moist mucous membranes, pharyngeal erythema Neck Exam: normal inspection, non-tender, supple, full range of motion, No meningismus Respiratory Exam: normal breath sounds, lungs clear Cardiovascular Exam: regular rate/rhythm, normal heart sounds Gastrointestinal/Abdomen Exam: soft, normal bowel sounds, No tenderness Back Exam: normal inspection, normal range of motion Extremity Exam: normal inspection, normal range of motion Neurologic Exam: alert, oriented x 3, cooperative Skin Exam: normal color SpO2 Interpretation: normal SpO2: 97 O2 Delivery: Room Air Lab/Rad Data: Laboratory Results 08/18/23 Range/Units 18:40 Influenza Type A Ag NEGATIVE (NEGATIVE) Influenza Type B Ag NEGATIVE (NEGATIVE) RSV (PCR) NEGATIVE (NEGATIVE) SARS-CoV-2 (PCR) NEGATIVE (NEGATIVE) Group A Strep Antibody NOT DETECTED (NEGATIVE) - Progress Progress: unchanged Air Movement: good Progress Note: 08/18/23 19:37 37-year-old is evaluated for URI symptoms for the last 3 weeks with progressive worsening with a recent positive sick contact. Patient is not in any distress. Lungs bilateral clear to auscultation. No otitis media. No sinus tenderness. Has pharyngeal erythema with no exudates. Obtained COVID flu RSV and strep swab which are all negative. Do not think she needs any imaging or any other work. I believe patient has viral etiology symptoms, recommended supportive care and outpatient follow-up. Discussed signs symptoms of worsening needing return to ER which she seems understanding. Stable for discharge. Blood Culture(s) Obtained: No Antibiotics given: No Counseled pt/family regarding: lab results, diagnosis, need for follow-up, smok ing cessation Medical Desision Making - Diagnostic Testing Diagnostic test were ordered, analyzed, and reviewed by me: Yes - Departure Departure Disposition: Home Clinical Impression: Viral syndrome Condition: Stable Critical Care Time: No Referrals: EDSON MATIAS NP, RN [Primary Care Provider] - Follow up with PCP 2 days Instructions: Viral Pharyngitis (DC) Additional Instructions: Take Tylenol/ibuprofen as needed for aches and pains. Drink plenty of fluids. Take cough syrup as needed. Follow-up with primary care for reevaluation. Return to ER for any worsening.
== END 2023-08-18 19:48 | disposition home or self-care (01) ==
LOC: ED 18:21
DX: B34.9 Viral infection, unspecified (principal); H92.03 Otalgia, bilateral; J02.9 Acute pharyngitis, unspecified; R05.1 Acute cough; R53.83 Other fatigue; Z79.899 Other long term (current) drug therapy; Z86.16 Personal history of COVID-19
CPT/HCPCS: 0241U; 87651; 99282

== ENCOUNTER 2023-08-19 12:25 | Emergency (ER) | payer OTHER ==
[2023-08-19 13:17] VITALS: PULSE 63; TEMP 96.8
[2023-08-19] MEDS ORDERED: MOTRIN 600 MG ONE (14:36)
--- NOTE | 2023-08-19 14:36 | ERPHSYRPT ---
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 My hand is tingling and hurting bad. I work at [employer]". Triage Nursing Assessment: Pt presents to ER with complaints of right hand injury that occurred while working. Pt proximal third digit has obvious bruising and tenderness upon exam. Pt complains of numbness in hand. Pt rates pain 6/10 scale. Pt is alert and oriented x 3. Skin is pink, warm, and dry. Respirations are easy. Pt has no other injuries or complaints at this time. 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 Pt denies any numbness. Allergies/Adverse Reactions: ceftriaxone [From Rocephin] Allergy (Intermediate, Verified 03/20/23 09:06) Anaphylactic Reaction bupropion HCl [From Wellbutrin] Allergy (Mild, Verified 03/20/23 09:06) diphenhydramine HCl [From Benadryl] Allergy (Mild, Verified 03/20/23 09:06) egg Allergy (Mild, Verified 08/19/23 13:18) Influenza Virus Vaccines Allergy (Mild, Verified 08/19/23 13:18) tramadol Allergy (Mild, Verified 03/20/23 09:06) Home Medications: Duloxetine HCl [Cymbalta] 60 mg PO DAILY 03/03/23 [History] Multivitamin 1 tab PO DAILY 03/20/23 [History] Hx Tetanus, Diphtheria Vaccination/Date Given: Yes Hx Influenza Vaccination/Date Given: No Hx Pneumococcal Vaccination/Date Given: No Immunizations Up to Date: No Travel Risk - International Travel Have you traveled outside of the country in past 3 weeks: No - Coronavirus Screening Are you exhibiting any of the following symptoms?: No Close contact with a COVID-19 positive Pt in past 14-21 Days: No - Vaccine Status Have you recieved a Covid-19 vaccination: No [employer]: Unknown - Vaccination Dates Dates if Unknown: na - Review of Systems Musculoskeletal: Other (right hand pain today) - Past Medical History Pertinent Past Medical History: Yes Neurological History: No Pertinent History ENT History: No Pertinent History Cardiac History: No Pertinent History Respiratory History: Asthma, Emphysema Endocrine Medical History: Other Musculoskeletal History: Arthritis GI Medical History: No Pertinent History History: No Pertinent History Psycho-Social History: Anxiety, Depression Female Reproductive Disorders: No Pertinent History Other Medical History: Anxiety, has been referred to thyroid specialist, COVID- 19, , Tonsillectomy, B pinky toe correction, cystectomy, bladder correction - Past Surgical History Past Surgical History: Yes Neuro Surgical History: No Pertinent History Cardiac: No Pertinent History Respiratory: No Pertinent History Gastrointestinal: No Pertinent History Genitourinary: Other Musculoskeletal: No Pertinent History Female Surgical History: Hysterectomy, Section Other Surgical History: TONSILECTOMY, ear tubes, bladder tie up, pinky toes corrected - Social History Smoking Status: Current every day smoker How long have you smoked: 6 YEARS Exposure to second hand smoke: No Drug Use: none Patient Lives Alone: No - Female History Hx Last Menstrual Period: 2014 Hx Now: No - Nursing Vital Signs Nursing Vital Signs: Initial Vital Signs Temperature 96.8 F 08/19/23 13:08 Pulse Rate 63 08/19/23 13:08 Respiratory Rate 16 08/19/23 13:08 Blood Pressure 121/56 08/19/23 13:08 O2 Sat by Pulse Oximetry 95 08/19/23 13:08 Pain Scale Pain Intensity 6 - Physical Exam General Appearance: alert Shoulder Exam: normal ROM Elbow/Forearm Exam: normal ROM Wrist Exam: normal ROM Hand Exam: normal ROM, swelling (mild edema, tenderness and ecchymosis of distal dorsal aspect of right hand dorsum.) Neuro/Tendon Exam: normal sensation, normal motor functions Mental Status Exam: alert, cooperative SpO2 Interpretation: normal SpO2: 95 O2 Delivery: Room Air - Course Nursing assessment & vital signs reviewed: Yes - Radiology Exams Right Hand X-ray Interpretation: Teleradiologist Report (No acute osseous abnormality could be identified.) Ordered Tests: Active Orders 24 hr Category Date Time Status HAND (MINIMUM 3 VIEWS) Stat Exams 08/19/23 14:34 Completed Medication Summary Discontinued Medications Generic Name Dose Route Start Last Admin Trade Name Freq PRN Reason Stop Dose Admin Ibuprofen 600 mg 08/19/23 14:34 08/19/23 14:38 Ibuprofen 600 Mg Tablet PO 08/19/23 14:35 600 mg STAT ONE Administration Ibuprofen Confirm 08/19/23 14:36 Ibuprofen 600 Mg Tablet Administered 08/19/23 14:37 Dose 600 mg .ROUTE .STK-MED ONE - Progress Counseled pt/family regarding: diagnosis, need for follow-up, rad results Medical Desision Making - Diagnostic Testing Diagnostic test were ordered, analyzed, and reviewed by me: Yes Radiological Interpretation: Teleradiologist Report - Departure Departure Disposition: Home Clinical Impression: Contusion of right hand Condition: Stable Critical Care Time: No Referrals: EDSON MATIAS NP, RN [Primary Care Provider] - Follow up/PCP as directed Instructions: Contusion (DC) Additional Instructions: Elevate right hand above heart level for the next 24 hours. Take ibuprofen as needed for pain.
[2023-08-19] MEDS: MOTRIN 600 MG PO ONE (14:38)
[2023-08-19 15:08] VITALS: RESP 18
--- NOTE | 2023-08-19 16:08 | XRAY ---
CLINICAL HISTORY:pain COMPARISON:None. TECHNIQUE:X-ray right hand AP, oblique and lateral views. FINDINGS: Normal bone density is seen. Intact visualized joint spaces. No definite fracture line or subluxation is seen. No significant soft tissue swelling is seen. There is superimposition of the distal radius and proximal carpal row, which is likely projectional with limited evaluation of radiocarpal joint space. IMPRESSION: No acute osseous abnormality could be identified. There is superimposition of the distal radius and proximal carpal row of the right hand, which is likely projectional with limited evaluation of the radiocarpal joint, requiring further evaluation and follow-up if clinically indicated. DISCLAIMER:A subtle bone abnormality or fracture may not be readily apparent on X-rays, thus clinical correlation and further imaging including follow-up CT, MRI, or follow-up X-rays are advised as needed Electronically Signed by: Barby Doe MD. (08/19/2023 16:04:21 EST)
[2023-08-19 16:21] VITALS: BP 116/73
[2023-08-19 16:30] VITALS: O2SAT 95
== END 2023-08-19 16:36 | disposition home or self-care (01) ==
LOC: ED 12:25
DX: S60.221A Contusion of right hand, initial encounter (principal); W22.09XA Striking against other stationary object, initial encounter; Y93.G1 Activity, food preparation and clean up; Y92.511 Restaurant or cafe as the place of occurrence of the external cause; Y99.0 Civilian activity done for income or pay; Z79.899 Other long term (current) drug therapy; Z28.310 Unvaccinated for COVID-19; Z86.16 Personal history of COVID-19; Z72.0 Tobacco use
CPT/HCPCS: 73130; 99283; A9270-GY

== ENCOUNTER 2024-07-06 12:04 | Emergency (ER) | payer MEDICAID, OTHER ==
[2024-07-06 16:44] VITALS: O2SAT 100
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
[2024-07-06 18:12] VITALS: PULSE 52
[2024-07-06 18:45] VITALS: BP 119/73; RESP 16
== END 2024-07-06 18:50 | disposition home or self-care (01) ==
LOC: ED 12:04
DX: S09.90XA Unspecified injury of head, initial encounter (principal); S01.311A Laceration without foreign body of right ear, initial encounter; W20.8XXA Other cause of strike by thrown, projected or falling object, initial encounter
CPT/HCPCS: 12013; 70450; 70486; 72125; 99283; 99284; 99285